=== PATIENT | male | born 1960 | race Caucasian/White ===

== ENCOUNTER 2022-05-10 09:40 | Inpatient (IN) | payer SELFPAY ==
--- OUTSIDE RECORDS SUMMARY | 2022-05-10 09:44 | XMS REPORT | Continuity of Care Document ---
:1960 Author Organization [facility] t Address [address] [place] [address] Care Team Providers Name Role Phone Ronald BRAR, Virginie Davalos Primary Care Physician Ronald BRAR, Virginie Davalos Attending Clinician [phone] GALO COLEMAN Attending Clinician Unavailable MD VIRGINIE CARDENAS Attending Clinician Unavailabl e MD VIRGINIE CARDENAS Admitting Clinician Unavailabl e Payers Payer Name Policy Type Policy Number Effective Date Expiration Date S ource Problems Condition Condition Condition Status Onset Resolution Last Treating Co mments Source Name Details Category Date Date Treatment Clinician Date No known No known Disease Metho di active active st problems problems Hospit a l Allergies, Adverse Reactions, Alerts Allergy Allergy Status Severity Reaction(s) Onset Inactive Treating Comm ents Source Name Type Date Date Clinician Micky Ocampo Active Methodi ty to [facility] adverse Hospita reaction l s to drug Family History Family Member Diagnosis Comments Start Date Stop Date Source Natural father Hypertension [facility] Natural father Heart attack [facility] Natural mother Lung cancer [facility] Natural brother Hypertension [facility] Social History Social Habit Start Date Stop Date Quantity Comments Source History of Chews [facility] Alcohol intake 2021-02-07 2021-02-07 Current drinker [facility] 00:00:00 00:00:00 of alcohol Hospital (finding) Tobacco use and 2018-05-05 2018-05-05 User of smokeless [facility] exposure 00:00:00 00:00:00 tobacco Hospital Sex Assigned At [birth year] M [facility] 00:00:00 [facility]:00 Hospital Smoking Status Start Date Stop Date Source Never smoked tobacco [facility] Medications Ordered Filled Start Stop Current Ordering Indication Dosage Frequency Signature Comments Components Source Medication Medication Date Date Medication? Clinician (SIG) Name Name mayank- Yes [id number] TAKE 1 [facility] drochloroth 8-[address] iazide 00:00: [facility] (HYZAAR) 00 EVERY DAY l 100-25 mg per tablet metoprolol Yes [id number] TAKE 1 M [facility]i succinate - TABLET BY st XL 00:00: [facility] (TOPROL-XL) 00 EVERY DAY l 25 mg 24 hr tablet losartan-hy 2021- No [id number] TAKE 1 [facility] drochloroth 03-[address] iazide 00:00: 00:00 [facility] (HYZAAR) 00 :00 EVERY DAY l 100-25 mg per tablet metoprolol 2021- No [id number] TAKE 1 [facility] succinate 03-[address] XL 00:00: 00:00 [facility]OUTH [facility] (TOPROL-XL) 00 :00 EVERY DAY l 25 mg 24 hr tablet losartan-hy 2021- No [id number] TAKE 1 [facility] drochloroth 01-[address] iazide 00:00: 00:00 [facility]OUTH [facility] (HYZAAR) 00 :00 EVERY DAY l 100-25 mg per tablet metoprolol 2021- No [id number] TAKE 1 [facility] succinate 01-[address] XL 00:00: 00:00 [facility]OUTH [facility] (TOPROL-XL) 00 :00 EVERY DAY l 25 mg 24 hr tablet atorvastati Yes TAKE 1 Meth eliza n (LIPITOR) 1-[address] 80 MG 00:00: MOUTH [facility]osp[facility] tablet 00 EVERY DAY l AT NIGHT atorvastati 2020-2021- No 80mg QD Take 1 Met hodi n (LIPITOR) 5-10 01-13 tablet (80 s t 80 MG 00:00: 00:00 mg total) Hospit a tablet 00 :00 by mouth l nightly. metoprolol 2021- No [id number] 25mg QD Take 1 [facility] succinate 01-05 tablet (25 st XL 00:00: 00:00 mg total) Hospita (TOPROL-XL) 00 :00 by mouth l 25 mg 24 hr daily. tablet losartan-hy 2021- No [id number] 1{tbl} QD Take 1 [facility] drochloroth 01-[address] iazide 00:00: 00:00 mouth Hospita (HYZAAR) 00 :00 daily. l 100-25 mg per tablet Immunizations Ordered Immunization Filled Immunization Date Status Commen ts Source Name Name Zoster Vaccine 2021-03-09 Completed [facility] Recombinant 00:00:00 Hospital Zoster Vaccine 2021-01-05 Completed [facility] Recombinant 00:00:00 Hospital ROXANA COVID-19 2020-12-11 Completed [facility] t AD26 VACCINATION 00:00:00 [facility] Tdap 2018-09-18 Completed [facility] 00:00:00 Hospital Procedures This patient has no known procedures. Plan of Care Planned Activity Planned Date Details Comments Source Future Scheduled 2022-05-10 HEPATITIS B VACCINES Met [facility] Test 09:43:20 (1 of 3 - 3-dose series) [code = HEPATITIS B VACCINES (1 of 3 - 3-dose series)] Future Scheduled 2022-05-10 COLONOSCOPY SCREENING [facility] Test 09:43:20 [code = COLONOSCOPY SCREENING] Future Scheduled 2022-05-10 COVID-19 VACCINE (2 - [facility] Test 09:43:20 Booster for Roxana series) [code = COVID-19 VACCINE (2 - Booster for Roxana series)] Future Scheduled 2022-05-10 INFLUENZA VACCINE [facility] Test 09:43:20 [code = INFLUENZA VACCINE] Encounters Start End Encounter Admission Attending Care Care Encounter Source Date/Time Date/Time Type Type Clinicians Facility Department ID 2022-04-30 2022-04-30 Refill Ronald, 1.2.840.1 [id number] [facility] 00:00:00 00:00:[id number] [place] 3.430.2.7 Hospi ta .3.739506 l .8 2022-04-22 2022-04-22 Refill Ronald, 1.2.840.1 [id number] [facility] 00:00:00 00:00:[id number] [place] 3.430.2.7 Hospi ta .3.369313 l .8 2022-03-28 2022-03-28 Refill [place], 1.2.840.1 [id number] [facility] 00:00:00 00:00:[id number] [place] 3.430.2.7 Hospi ta .3.441695 l .8 2022-01-02 2022-01-02 Refill [place], 1.2.840.1 [id number] [facility] 00:00:00 00:00:[id number] [place] 3.430.2.7 Hospi ta .3.131667 l .8 2021-09-12 2021-09-12 Refill Ronald, 1.2.840.1 [id number] [facility] 00:00:00 00:00:[id number] [place] 3.430.2.7 Hospi ta .3.639683 l .8 2021-03-09 2021-03-09 Outpatient [facility] [id number] [place] 00:00:00 00:00:[address] 2021-02-06 2021-02-06 Outpatient JARED [facility] [id number] [place] 00:00:00 00:00:00 GALO [address] 2021-02-06 2021-02-06 Outpatient RONALD [facility] [id number] [place] 00:00:00 00:00:00 VIRGINIE [address] 2021-01-05 2021-01-05 Outpatient RONALD [facility] [id number] [place] 00:00:00 00:00:00 VIRGINIE [address] 2021-01-05 2021-01-05 Outpatient [facility] [id number] [place] 00:00:00 00:00:[address] 2020-08-22 2020-08-22 Outpatient RONALD [facility] [id number] [place] 00:00:00 00:00:00 VIRGINIE 782 Metho di 2020-02-04 2020-02-04 Outpatient RONALD [facility] [id number] [place] 00:00:00 00:00:00 VIRGINIE 925 Metho di 2020-02-03 2020-02-03 Outpatient RONALD [facility] [id number] [place] 00:00:00 00:00:00 VIRGINIE 987 Metho di 2020-01-25 2020-01-25 Outpatient RONALD [facility] [id number] [place] 00:00:00 00:00:00 VIRGINIE 134 Metho di 2019-12-31 2019-12-31 Outpatient RONALD [facility] [id number] [place] 00:00:00 00:00:00 VIRGINIE 527 Metho di 2019-10-29 2019-10-29 Outpatient RONALD [facility] [id number] [place] 00:00:00 00:00:00 VIRGINIE 134 Metho di 2019-10-29 2019-10-29 Outpatient [facility] [id number] [place] 00:00:00 00:00:[address] Results Test Description Test Time Test Comments Results Result Comments Source SARS coronavirus 2 RNA [Presence] in Respiratory speci men by 2020-02-04 18:34:56 IRWIN with probe detection Test Item Value Reference Range Interpretation Comme nts SARS coronavirus 2 RNA [Presence] in Respiratory Not detected Not-D etected specimen by IRWIN with probe detection (test code = 27317-2)
[2022-05-10] MEDS ORDERED: KETOROLAC 30 MG/ML INJ ONE (10:33)
[2022-05-10] MEDS ORDERED: FAMOTIDINE 20 MG/2 ML VIAL IV ONE (10:34)
[2022-05-10] MEDS ORDERED: NA CHLORIDE 0.9% 1,000 ML ONE ×4 (10:34→21:19)
[2022-05-10] MEDS ORDERED: ONDANSETRON 4 MG/2 ML VIAL ONE (10:34)
[2022-05-10 10:36] LABS: Absolute Lymphocytes (CBC) 0.2 K/uL (0.7-4.9); Hematocrit 37.3 % (39.6-49.0); Lymphocytes % 1.7 % (15.3-44.8); MCV 87.3 fL (80-100); MPV 7.9 fL (7.6-11.3); RBC Red Blood Cell Count 4.27 M/uL (4.33-5.43)
--- NOTE | 2022-05-10 11:32 | RAD REPORT ---
EXAM DESCRIPTION: US - Abdomen Exam Limited - 05/10/2022 11:14 am CLINICAL HISTORY: ABD PAIN COMPARISON: No comparisons FINDINGS: The gallbladder demonstrates sludge and small stones in the gallbladder. Gallbladder wall is mildly thickened. The common bile duct is normal measuring 4 mm. The liver demonstrates no findings of intrahepatic biliary dilatation. IMPRESSION: Sludge and gallstones are seen with mild wall thickening. HIDA scan may be of value to a ssess for possible cholecystitis.
[2022-05-10 11:35] LABS: Albumin 3.2 g/dL (3.4-5.0); Bilirubin Total 1.2 mg/dL (0.2-1.0); Potassium 3.4 mmol/L (3.5-5.1); Protein, Total 7.9 g/dL (6.4-8.2)
--- NOTE | 2022-05-10 12:02 | ER ---
Nurse's Notes [facility] Name: Kennedy Sewell Age: 61 yrs Sex: Male : 1960 Arrival Date: 05/10/2022 Time: 09:43 Bed 17 Private MD: Diagnosis: Acute cholecystitis Presentation: 05/10 09:55 Chief complaint: Patient states: epigastric \T\ RUQ pain that began on Friday. Pt reports ss that on the first day he had some N/V, but since then has just had a decrease in his appetite. Worse when eating. Coronavirus screen: Client denies travel out of the [place] in the last 14 days. Ebola Screen: Patient denies exposure to infectious person. Patient denies travel to an Ebola-affected area in the 21 days before illness onset. Initial Sepsis Screen: Does the patient meet any 2 criteria? No. Patient's initial sepsis screen is negative. Does the patient have a suspected source of infection? No. Patient's initial sepsis screen is negative. Risk Assessment: Do you want to hurt yourself or someone else? Patient reports no desire to harm self or others. Onset of symptoms was May 06, 2022. 09:55 Method Of Arrival: Ambulatory ss 09:55 Acuity: MARIA EUGENIA 3 ss Historical: - Allergies: 10:02 Codeine; ss - PMHx: 10:02 Hypertensive disorder; ss - PSHx: 10:02 None; ss - Immunization history:: Client reports receiving the 2nd dose of the Covid vaccine. - Social history:: Smoking status: Patient reports use of chewing tobacco. Screenin:30 Abuse screen: Denies threats or abuse. Nutritional screening: No deficits noted. aa5 Tuberculosis screening: No symptoms or risk factors identified. Fall Risk None identified. Assessment: 10:30 General: Appears comfortable, Behavior is calm, cooperative. Pain: Complains of pain in aa5 epigastric area Pain radiates to right upper quadrant Pain currently is 4 out of 10 on a pain scale. Quality of pain is described as sharp, Pain began friday Is intermittent. Neuro: Level of Consciousness is awake, alert, obeys commands, Oriented to person, place, time, situation. Cardiovascular: Heart tones S1 S2 present Rhythm is regular. Respiratory: Airway is patent Respiratory effort is even, unlabored, Respiratory pattern is regular, symmetrical. GI: Abdomen is round Bowel sounds present X 4 quads. Abd is soft X 4 quads Abdomen is tender to palpation in epigastric area and right upper quadrant Reports nausea, vomiting, Patient currently denies diarrhea. : No signs and/or symptoms were reported regarding the genitourinary system. EENT: No signs and/or symptoms were reported regarding the EENT system. Derm: Skin is pink, warm \T\ dry. Musculoskeletal: Range of motion: intact in all extremities. 12:00 Reassessment: Pt c/o chills. Neuro: Level of Consciousness is awake, alert, obeys aa5 commands, Oriented to person, place, time, situation. Respiratory: Airway is patent Respiratory effort is even, unlabored, Respiratory pattern is regular, symmetrical. Derm: Skin is dry, Skin is normal, Skin temperature is hot. 12:00 Reassessment: Pt back from radiology . aa5 13:30 Neuro: Level of Consciousness is awake, alert, obeys commands, Oriented to person, aa5 place, time, situation. Respiratory: Airway is patent Respiratory effort is even, unlabored, Respiratory pattern is regular, symmetrical. Derm: Skin is dry, Skin is normal, Skin temperature is hot. 13:35 Reassessment: Pt to MRI via wheelchair. Antibiotics on hold until pt returns from MRI. .aa5 14:34 Neuro: Level of Consciousness is awake, alert, obeys commands, Oriented to person, aa5 place, time, situation. Respiratory: Airway is patent Respiratory effort is even, unlabored, Respiratory pattern is regular, symmetrical. Derm: Skin is dry, Skin is normal, Skin temperature is hot. 14:34 Reassessment: Pt currently denies chills, temperature not improving, provider notified. aa5 . 14:34 Pain: Pain currently is 1 out of 10 on a pain scale. aa5 14:34 Reassessment: Patient states feeling better. aa5 14:45 Reassessment: Pt given Jello and vanilla pudding per request, pt tolerating well. . aa5 15:00 Reassessment: Lactate drawn before 2nd NS liter bolus was administered. . aa5 15:25 Reassessment: Patient is alert, oriented x 3, equal unlabored respirations, skin aa5 warm/dry/pink. Pt sitting up in bed watching TV, hypotension, pt denies any symptoms. . 16:00 Reassessment: Patient is alert, oriented x 3, equal unlabored respirations, skin aa5 warm/dry/pink. 16:30 Reassessment: Patient is alert, oriented x 3, equal unlabored respirations, skin aa5 warm/dry/pink. Pt sitting up in bed watching TV. . 17:00 Reassessment: Dr. Cast (hospitalist) notified of persistent hypotension, pt denies any aa5 symptoms. TO to administer 1 L NS bolus (see MAR). 17:00 Reassessment: Patient is alert, oriented x 3, equal unlabored respirations, skin aa5 warm/dry/pink. 18:00 Reassessment: Patient is alert, oriented x 3, equal unlabored respirations, skin aa5 warm/dry/pink. Sitting up in bed watching TV. . 18:35 Reassessment: Administered [employer] [facility] medications per Dr. Cast (see [facility]) . aa5 Vital Signs: 09:55 BP 123 / 77; Pulse 103; Resp 16; Temp 97.8(TE); Pulse Ox 97% on R/A; Weight 86.18 kg; ss Height 5 ft. 9 in. (175.26 cm); Pain 3/10; 12:00 BP 124 / 76; Pulse 108; Resp 24 S; Temp 101.8(O); Pulse Ox 96% on R/A; aa5 13:30 BP 106 / 63; Pulse 90; Resp 20 S; Temp 101.5(O); Pulse Ox 95% on R/A; aa5 14:34 BP 90 / 72; Pulse 96; Resp 18 S; Temp 101.2(O); Pulse Ox 98% on R/A; aa5 15:00 BP 83 / 48; Pulse 102; Resp 18 S; Pulse Ox 99% on R/A; aa5 15:25 BP 83 / 56; Pulse 89; Resp 16 S; Temp 99.3(O); Pulse Ox 98% on R/A; aa5 16:00 BP 80 / 53; Pulse 88; Resp 16 S; Pulse Ox 98% on R/A; aa5 16:20 BP 83 / 47; Pulse 84; Resp 14 S; Pulse Ox 97% on R/A; aa5 16:45 BP 84 / 58; Pulse 84; Resp 14 S; Pulse Ox 99% on R/A; aa5 17:00 BP 83 / 49; Pulse 84; Resp 16 S; Pulse Ox 99% on R/A; aa5 17:34 BP 84 / 55; Pulse 86; Resp 16; Temp 99.6(O); Pulse Ox 97% on R/A; aa5 18:00 BP 86 / 57; Pulse 80; Resp 16 S; Pulse Ox 99% on R/A; aa5 18:45 BP 85 / 60; Pulse 85; Resp 14 S; Temp 99.6(O); Pulse Ox 98% on R/A; aa5 09:55 Body Mass Index 28.06 (86.18 kg, 175.26 cm) ss 12:00 provider notified of elevated temperature aa5 14:34 provider notified of lowered BP and unchanged temperature. aa5 ED Course: 09:43 Patient arrived in ED. mr 10:02 Triage completed. ss 10:02 Arm band placed on right wrist. ss 10:08 Hernán William is PHCP. jl9 10:08 Td Segura MD is Attending Physician. jl9 10:28 Inserted saline lock: 20 gauge in right antecubital area, using aseptic technique. kc6 Blood collected. 10:28 CBC with Diff Sent. kc6 10:28 CMP Sent. kc6 10:28 Lipase Sent. kc6 10:30 Patient has correct armband on for positive identification. Placed in gown. Bed in low aa5 position. Call light in reach. Side rails up X 1. Pulse ox on. NIBP on. 10:49 Alannah Sanchez, RHODA is Primary Nurse. aa5 11:16 Abdomen Limited US In Process Unspecified. EDMS 12:01 Macie Cast MD is Hospitalizing Provider. jl9 12:40 First set of blood cultures drawn by me. dh3 12:47 Second set of blood cultures drawn. Inserted saline lock: 20 gauge in left antecubital 3 area, using aseptic technique. Blood collected. 12:53 Blood Culture Adult (2) Sent. dh3 14:09 Cholangiogram In Process Unspecified. EDMS 14:56 COVID swab sent to lab. tm3 18:51 No provider procedures requiring assistance completed. Patient admitted, IV remains in aa5 place. Administered Medications: 11:45 Drug: Pepcid (famotidine) 20 mg Route: IVP; Site: right antecubital; aa5 12:00 Follow up: Response: No adverse reaction aa5 11:45 Drug: Zofran (Ondansetron) 4 mg Route: IVP; Site: right antecubital; aa5 12:00 Follow up: Response: No adverse reaction aa5 11:45 Drug: Ketorolac 15 mg Route: IVP; Site: right antecubital; aa5 12:00 Follow up: Response: No adverse reaction aa5 11:45 Drug: NS 0.9% 1000 ml Route: IV; Rate: 1000 ml; Site: right antecubital; aa5 13:30 Follow up: IV Status: Completed infusion; IV Intake: 1000ml aa5 13:30 Drug: fentaNYL (PF) 50 mcg Route: IVP; Site: right antecubital; aa5 13:35 Follow up: Response: No adverse reaction aa5 13:35 Drug: Tylenol 1000 mg Route: PO; aa5 14:34 Follow up: Response: No adverse reaction aa5 14:20 Drug: metroNIDAZOLE 500 mg Volume: 100 ml; Route: IVPB; Infused Over: 30 mins; Site: aa5 right antecubital; 14:30 Follow up: Response: No adverse reaction aa5 14:50 Follow up: IV Status: Completed infusion aa5 15:00 Drug: Cipro (ciprofloxacin) 400 mg Volume: 200 ml; Route: IVPB; Infused Over: 60 mins; aa5 Site: right antecubital; 15:10 Follow up: Response: No adverse reaction aa5 16:00 Follow up: Response: No adverse reaction; IV Status: Completed infusion aa5 15:01 Drug: NS 0.9% 1000 ml Route: IV; Rate: 1000 ml; Site: right antecubital; aa5 16:00 Follow up: IV Status: Completed infusion; IV Intake: 1000ml aa5 15:01 Drug: Ibuprofen 800 mg Route: PO; aa5 15:25 Follow up: Response: Temperature is decreased aa5 17:19 Drug: NS 0.9% 1000 ml Route: IV; Rate: 1000 ml; Site: right antecubital; aa5 18:00 Follow up: IV Status: Completed infusion; IV Intake: 1000ml aa5 Medication: 18:45 VIS not applicable for this client. aa5 Intake: 13:30 IV: 1000ml; Total: 1000ml. aa5 16:00 IV: 1000ml; Total: 2000ml. aa5 18:00 IV: 1000ml; Total: 3000ml. aa5 Outcome: 12:01 Decision to Hospitalize by Provider. jl9 19:00 Admitted to ER Hold. Please see [facility] for further documentation. aa5 19:00 Condition: stable 19:00 Instructed on the need for admit, Demonstrated understanding of instructions, Report given to RHODA Nelson 22:23 Patient left the ED. bb Signatures: Dispatcher [employer] EDMS Serjio Allen tm3 Rocky, Lisa mr Esther, Palma, RN RN bb Alannah Sanchez RN RHODA [email or web address] Sylvia Guerrero RN RN ss Herrera, Deanna Hernán Godfrey jl9 Nadege Anton6 Corrections: (The following items were deleted from the chart) 13:48 13:35 Reassessment: Pt to MRI via wheelchair. . aa5 aa5 15:08 13:30 Temp 101.5F Oral; aa5 aa5 15:08 14:34 Temp 101.2F Oral; aa5 aa5 17:41 17:34 Pulse 86bpm; Resp 16bpm; Pulse Ox 97% RA; Temp 99.6F Oral; aa5 aa5 19:24 17:00 Reassessment: Dr. Cast (hospitalist) notified of persistent hypotension, pt aa5 denies any symptoms. TO to administer 1 L NS bolus. aa5 19:36 15:25 Reassessment: Patient is alert, oriented x 3, equal unlabored respirations, skin aa5 warm/dry/pink. aa5 19:37 16:00 Reassessment: Patient is alert, oriented x 3, equal unlabored respirations, skin aa5 warm/dry/pink. Pt sitting up in bed watching TV. . aa5
--- NOTE | 2022-05-10 12:02 | EDPHYS ---
Physician Documentation [facility] Name: Kennedy Sewell Age: 61 yrs Sex: Male : 1960 Arrival Date: 05/10/2022 Time: 09:43 Bed 17 Private MD: ED Physician Td Segura HPI: 05/10 10:25 This 61 yrs old Male presents to ER via Ambulatory with complaints of RUQ jl9 Abdominal Pain. Patient reports that pain is isolated to RUQ and worsens when he eats.. 10:25 The patient presents with abdominal pain in the right upper quadrant. Onset: The jl9 symptoms/episode began/occurred 1 week(s) ago. The symptoms do not radiate. Associated signs and symptoms: Pertinent positives: Nausea. The symptoms are described as achy. Modifying factors: The symptoms are alleviated by nothing, the symptoms are aggravated by food. Severity of pain: in the emergency department the pain is a 3 / 10. The patient has not experienced similar symptoms in the past. Historical: - Allergies: 10:02 Codeine; ss - PMHx: 10:02 Hypertensive disorder; ss - PSHx: 10:02 None; ss - Immunization history:: Client reports receiving the 2nd dose of the Covid vaccine. - Social history:: Smoking status: Patient reports use of chewing tobacco. ROS: 10:26 Constitutional: Negative for fever, chills, and weight loss, Eyes: Negative for injury, jl9 pain, redness, and discharge, ENT: Negative for injury, pain, and discharge, Neck: Negative for injury, pain, and swelling, Cardiovascular: Negative for chest pain, palpitations, and edema, Respiratory: Negative for shortness of breath, cough, wheezing, and pleuritic chest pain. 10:26 Back: Negative for injury and pain, : Negative for injury, bleeding, discharge, and swelling, MS/Extremity: Negative for injury and deformity, Skin: Negative for injury, rash, and discoloration, Neuro: Negative for headache, weakness, numbness, tingling, and seizure, Psych: Negative for depression, anxiety, suicide ideation, homicidal ideation, and hallucinations, Allergy/Immunology: Negative for hives, rash, and allergies, Endocrine: Negative for neck swelling, polydipsia, polyuria, polyphagia, and marked weight changes, Hematologic/Lymphatic: Negative for swollen nodes, abnormal bleeding, and unusual bruising. 10:26 Abdomen/GI: Positive for abdominal pain, nausea. Exam: 10:26 Constitutional: This is a well developed, well nourished patient who is awake, alert, jl9 and in no acute distress. Head/Face: Normocephalic, atraumatic. Eyes: Pupils equal round and reactive to light, extra-ocular motions intact. Lids and lashes normal. Conjunctiva and sclera are non-icteric and not injected. Cornea within normal limits. Periorbital areas with no swelling, redness, or edema. ENT: Mucous membranes moist. Neck: Trachea midline, no thyromegaly or masses palpated, and no cervical lymphadenopathy. Supple, full range of motion without nuchal rigidity, or vertebral point tenderness. No Meningismus. Chest/axilla: Normal chest wall appearance and motion. Nontender with no deformity. No lesions are appreciated. Cardiovascular: Regular rate and rhythm with a normal S1 and S2. No gallops, murmurs, or rubs. Normal PMI, no JVD. No pulse deficits. Respiratory: Lungs have equal breath sounds bilaterally, clear to auscultation and percussion. No rales, rhonchi or wheezes noted. No increased work of breathing, no retractions or nasal flaring. 10:26 Back: No spinal tenderness. No costovertebral tenderness. Full range of motion. Skin: Warm, dry with normal turgor. Normal color with no rashes, no lesions, and no evidence of cellulitis. MS/ Extremity: Pulses equal, no cyanosis. Neurovascular intact. Full, normal range of motion. Neuro: Awake and alert, GCS 15, oriented to person, place, time, and situation. Cranial nerves II-XII grossly intact. Motor strength 5/5 in all extremities. Sensory grossly intact. Cerebellar exam normal. Normal gait. Psych: Awake, alert, with orientation to person, place and time. Behavior, mood, and affect are within normal limits. 10:26 Abdomen/GI: Inspection: abdomen appears normal, Bowel sounds: normal, Palpation: mild abdominal tenderness, in the epigastric area and abdomen diffusely. Vital Signs: 09:55 BP 123 / 77; Pulse 103; Resp 16; Temp 97.8(TE); Pulse Ox 97% on R/A; Weight 86.18 kg; ss Height 5 ft. 9 in. (175.26 cm); Pain 3/10; 12:00 BP 124 / 76; Pulse 108; Resp 24 S; Temp 101.8(O); Pulse Ox 96% on R/A; aa5 13:30 BP 106 / 63; Pulse 90; Resp 20 S; Temp 101.5(O); Pulse Ox 95% on R/A; aa5 14:34 BP 90 / 72; Pulse 96; Resp 18 S; Temp 101.2(O); Pulse Ox 98% on R/A; aa5 15:00 BP 83 / 48; Pulse 102; Resp 18 S; Pulse Ox 99% on R/A; aa5 15:25 BP 83 / 56; Pulse 89; Resp 16 S; Temp 99.3(O); Pulse Ox 98% on R/A; aa5 16:00 BP 80 / 53; Pulse 88; Resp 16 S; Pulse Ox 98% on R/A; aa5 16:20 BP 83 / 47; Pulse 84; Resp 14 S; Pulse Ox 97% on R/A; aa5 16:45 BP 84 / 58; Pulse 84; Resp 14 S; Pulse Ox 99% on R/A; aa5 17:00 BP 83 / 49; Pulse 84; Resp 16 S; Pulse Ox 99% on R/A; aa5 17:34 BP 84 / 55; Pulse 86; Resp 16; Temp 99.6(O); Pulse Ox 97% on R/A; aa5 18:00 BP 86 / 57; Pulse 80; Resp 16 S; Pulse Ox 99% on R/A; aa5 18:45 BP 85 / 60; Pulse 85; Resp 14 S; Temp 99.6(O); Pulse Ox 98% on R/A; aa5 09:55 Body Mass Index 28.06 (86.18 kg, 175.26 cm) ss 12:00 provider notified of elevated temperature aa5 14:34 provider notified of lowered BP and unchanged temperature. aa5 MDM: 10:08 Patient medically screened. jl9 10:27 Data reviewed: vital signs, nurses notes. jl9 12:01 Counseling: I had a detailed discussion with the patient and/or guardian regarding: the jl9 historical points, exam findings, and any diagnostic results supporting the discharge/admit diagnosis, lab results, radiology results, the need for further work-up and treatment in the hospital. Physician consultation: Spoke to Dr Cast in ED. Will see patient and consult surgery if needed. . 05/10 10:13 Order name: CBC with Diff; Complete Time: 11:33 9 05/10 10:13 Order name: CMP; Complete Time: 11:36 [facility] 05/10 10:13 Order name: Lipase; Complete Time: 11:36 [facility] 05/10 12:00 Order name: Blood Culture Adult (2) [facility] 05/10 14:39 Order name: CBC with Automated Diff EDMS 05/10 14:39 Order name: CBC with Automated Diff EDMS 05/10 14:39 Order name: Comprehensive Metabolic Panel EDMS 05/10 14:39 Order name: Comprehensive Metabolic Panel EDMS 05/10 14:39 Order name: Lipase EDMS 05/10 14:39 Order name: Lipase EDMS 05/10 14:39 Order name: Magnesium EDMS 05/10 14:39 Order name: Magnesium EDMS 05/10 14:39 Order name: Phosphorus EDMS 05/10 14:39 Order name: Phosphorus EDMS 05/10 10:13 Order name: Abdomen Limited US; Complete Time: 11:33 [facility] 05/10 11:59 Order name: Cholangiogram; Complete Time: 14:40 EDMS 05/10 14:39 Order name: Protime (+INR) EDMS 05/10 14:39 Order name: Protime (+INR) EDMS 05/10 14:39 Order name: PTT, Activated Partial Thromb EDMS 05/10 14:39 Order name: PTT, Activated Partial Thromb EDIN 05/10 14:40 Order name: Urine Dipstick-Ancillary; Complete Time: 14:40 [facility] 05/10 14:40 Order name: Lactate; Complete Time: 16:41 [facility] 05/10 14:47 Order name: SARS-COV-2 Antigen Rapid; Complete Time: 16:41 05/10 10:13 Order name: IV Saline Lock; Complete Time: 10:28 [facility] 05/10 10:13 Order name: Labs collected and sent; Complete Time: 10:28 [facility] 05/10 10:13 Order name: Urine Dipstick-Ancillary (obtain specimen); Complete Time: 15:01 [facility] 05/10 14:39 Order name: CONS Physician Consult EDMS 05/10 14:39 Order name: NPO EDMS Administered Medications: 11:45 Drug: Pepcid (famotidine) 20 mg Route: IVP; Site: right antecubital; aa5 12:00 Follow up: Response: No adverse reaction aa5 11:45 Drug: Zofran (Ondansetron) 4 mg Route: IVP; Site: right antecubital; aa5 12:00 Follow up: Response: No adverse reaction aa5 11:45 Drug: Ketorolac 15 mg Route: IVP; Site: right antecubital; aa5 12:00 Follow up: Response: No adverse reaction aa5 11:45 Drug: NS 0.9% 1000 ml Route: IV; Rate: 1000 ml; Site: right antecubital; aa5 13:30 Follow up: IV Status: Completed infusion; IV Intake: 1000ml aa5 13:30 Drug: fentaNYL (PF) 50 mcg Route: IVP; Site: right antecubital; aa5 13:35 Follow up: Response: No adverse reaction aa5 13:35 Drug: Tylenol 1000 mg Route: PO; aa5 14:34 Follow up: Response: No adverse reaction aa5 14:20 Drug: metroNIDAZOLE 500 mg Volume: 100 ml; Route: IVPB; Infused Over: 30 mins; Site: aa5 right antecubital; 14:30 Follow up: Response: No adverse reaction aa5 14:50 Follow up: IV Status: Completed infusion aa5 15:00 Drug: Cipro (ciprofloxacin) 400 mg Volume: 200 ml; Route: IVPB; Infused Over: 60 mins; aa5 Site: right antecubital; 15:10 Follow up: Response: No adverse reaction aa5 16:00 Follow up: Response: No adverse reaction; IV Status: Completed infusion aa5 15:01 Drug: NS 0.9% 1000 ml Route: IV; Rate: 1000 ml; Site: right antecubital; aa5 16:00 Follow up: IV Status: Completed infusion; IV Intake: 1000ml aa5 15:01 Drug: Ibuprofen 800 mg Route: PO; aa5 15:25 Follow up: Response: Temperature is decreased aa5 17:19 Drug: NS 0.9% 1000 ml Route: IV; Rate: 1000 ml; Site: right antecubital; aa5 18:00 Follow up: IV Status: Completed infusion; IV Intake: 1000ml aa5 Disposition Summary: 05/10/22 12:01 Hospitalization Ordered Hospitalization Status: Inpatient Admission jl9 Provider: Macie Cast Condition: Stable jl9 Problem: new jl9 Symptoms: are unchanged jl9 Bed/Room Type: Standard jl9 Location: Intensive Care Unit(05/10/22 19:45) Room Assignment: 1-(05/10/22 20:08) Diagnosis - Acute cholecystitis jl9 Forms: - Medication Reconciliation Form jl9 - SBAR form jl9 Signatures: Dispatcher [employer] EDMS Kellen Bolton bd Virginia Malik RN RN Nathaly Neal RN RN Alannah Whitmore RN RN [email or web address] Sylvia Guerrero RN RN Hernán William jl9 Corrections: (The following items were deleted from the chart) 15:50 12:01 jl9 bd 18:02 12:01 Telemetry/MedSurg (Inpatient) jl9 18:02 15:50 [id number] 19:45 18:[address] [facility] ER HOLD [facility] 19:45 18:02 [facility] 20:08 19:45 4- mw
[2022-05-10] MEDS ORDERED: FENTANYL CITR 100 MCG/2 ML ONE (13:22)
[2022-05-10] MEDS ORDERED: CIPROFLOXACIN 400mg IV 400 MG/200 ML BAG IV ONE (13:23)
[2022-05-10] MEDS ORDERED: METRONIDAZOLE 500mg IVPB 500 MG/100 ML BAG IV ONE (13:23)
[2022-05-10] MEDS ORDERED: ACETAMINOPHEN 500 MG TAB ONE (13:47)
--- NOTE | 2022-05-10 14:26 | RAD REPORT ---
EXAM DESCRIPTION: MRICholangiogram05/10/2022 2:14 pm CLINICAL HISTORY: Abdominal pain COMPARISON: May 10, 2022 ultrasound TECHNIQUE: Magnetic resonance cholangiogram was performed.3D MIP reconstruction performed FINDINGS: Small filling defect within the gallbladder consistent with gallstone. Small amount of slu dge also visualized. Gallbladder wall is thickened The biliary tree is normal caliber without a filling defect. Pancreatic duct is normal caliber IMPRESSION: Cholelithiasis and sludge Thickened gallbladder wall may indicate cholecystitis
[2022-05-10] MEDS ORDERED: ONDANSETRON 4 MG/2 ML VIAL IV PRN (14:33)
[2022-05-10] MEDS ORDERED: ACETAMINOPHEN 500 MG TAB PO PRN (14:33)
[2022-05-10 14:40] LABS: Urine Blood Trace-intact (Negative); Urine Glucose Negative (Negative); Urine Protein 2+ (Negative); Urine Specific Gravity 1.025 (1.005-1.030); Urine pH 5.5 (5.0-7.0)
[2022-05-10] MEDS ORDERED: IBUPROFEN 400 MG TAB ONE (14:53)
[2022-05-10] MEDS ORDERED: HYDROMORPHONE HCL 0.5 MG/0.5 ML INJ IV PRN (14:56)
[2022-05-10] MEDS: ENOXAPARIN 40 MG/0.4 ML SQ SCH (15:00)
[2022-05-10 15:22] LABS: SARS-CoV-2 Antigen Rapid Res Negative (Negative)
[2022-05-10] MEDS ORDERED: ERTAPENEM SODIUM 1 GM VIAL IVPB ONE (17:48)
[2022-05-10] MEDS ORDERED: ERTAPENEM NA 1 GM in NA CHLORIDE 0.9% 100 ML IVPB ONE (18:00)
[2022-05-10] MEDS: METRONIDAZOLE 500mg IVPB 500 MG/100 ML BAG IV SCH ×2 (18:00→23:40)
[2022-05-10] MEDS: ALBUMIN HUMAN 25% 100 ML IV ONE ×2 (18:00→18:35)
[2022-05-10] MEDS ORDERED: Levofloxacin500mg IV 500 MG/100 ML BAG IV ONE (18:31)
[2022-05-10] MEDS ORDERED: D5 0.9 NS 0 ML IV ONE (18:31)
[2022-05-10] MEDS ORDERED: HYDROCORTISONE SUC 100 MG INJ ONE (18:32)
[2022-05-10] MEDS: D5 0.9 NS 1,000 ML IV SCH (18:35)
[2022-05-10] MEDS ORDERED: HYDROCORTISONE SUC 100 MG INJ IV ONE (18:44)
--- NOTE | 2022-05-10 19:05 | P.HP ---
Certification for Inpatient Patient admitted to: Inpatient With expected LOS: >2 Midnights Patient will require the following post-hospital care: None Practitioner: I am a practitioner with admitting privileges, knowledge of patient current condition, hospital course, and medical plan of care. Services: Services provided to patient in accordance with Admission requirements found in Title 42 Section 412.3 of the Code of Federal Regulations Patient History Date of Service: 05/10/22 Reason for admission: Acute cholecystitis History of Present Illness: patient is a 61-year-old gentleman came to the hospital with abdominal pain. He had a similar episode a couple months ago but it subsided after 24 hours. on Friday he started having abdominal pain once again. He had nausea vomiting that day. Since that time it has not let up. He has been trying to manage it at home but has been unsuccessful. He following decided to come into the emergency room for further evaluation. In the emergency room his workup revealed acute cholecystitis with cholelithiasis. There is no evidence of choledocholithiasis. Spoke to General surgery and patient will be NPO for surgery in the morning. He remains hypotensive and will try to monitor him in the ICU. Allergies codeine Allergy (Verified 05/10/22 17:52) Itching/Hives/Rash Home Medications: Losartan/Hydrochlorothiazide [Losartan-Hctz 100-25 mg Tab] 1 tab PO DAILY 05/10/22 Metoprolol Tartrate 25 mg PO DAILY 05/10/22 - Past Medical/Surgical History Past Medical History: Patient denies medical history Past Surgical History: Patient denies surgical history - Family History Father Family History: Reviewed- Non-Contributory Mother History Unknown: Yes Medical History: Cancer - Social History Smoking Status: Never smoker Alcohol use: No CD- Drugs: No Review of Systems 10-point ROS is otherwise unremarkable Physical Examination - Physical Exam General: Alert, In no apparent distress HEENT: Atraumatic, PERRLA, Mucous membr. moist/pink, EOMI, Sclerae nonicteric Neck: Supple, 2+ carotid pulse no bruit, No LAD, Without JVD or thyroid abnormality Respiratory: Clear to auscultation bilaterally, Normal air movement Cardiovascular: Regular rate/rhythm, Normal S1 S2 Gastrointestinal: Normal bowel sounds, No tenderness Musculoskeletal: No tenderness Integumentary: No rashes Neurological: Normal gait, Normal speech, Normal strength at 5/5 x4 extr, Normal tone, Normal affect Lymphatics: No axilla or inguinal lymphadenopathy - Studies Laboratory Data (last 24 hrs) 05/10/22 10:25: Sodium 130 L, Potassium 3.4 L, BUN 19 H, Creatinine 1.64 H, Glucose 138 H, Total Bilirubin 1.2 H, AST 57 H, ALT 35, Alkaline Phosphatase 120 H, Lipase 29 L 05/10/22 10:25: WBC 13.60 H, Hgb 13.2 L, Hct 37.3 L, Plt Count 185 Assessment & Plan - Problems (Diagnosis) (1) Acute cholecystitis Current Visit: Yes Status: Acute (2) Cholelithiasis Current Visit: Yes Status: Acute (3) Septic shock Current Visit: Yes Status: Acute - Plan -aggressive IV hydration; considering Levophed. Continue monitoring hemodynamics. Additional fluid boluses given -IV antibiotics -pain controlled -surgery consultation -Once we get rid of the source of infection then anticipate recovery quickly. -Continue monitoring renal function and for ATN -Sepsis protocol completed Discharge Plan: Home Plan to discharge in: Greater than 2 days - Advance Directives Does patient have a Living Will: No Does patient have a Durable POA for Healthcare: No - Code Status/Comfort Care Code Status Assessed: Yes Code Status: Full Code Critical Care: No Time Spent Managing PTS Care (In Minutes): 45
[2022-05-10] MEDS: Levofloxacin500mg IV 500 MG/100 ML BAG IV SCH (19:10)
[2022-05-10] MEDS ORDERED: POTASSIUM 25 MEQ EFFERV TAB PO ONE (20:32)
[2022-05-10] MEDS ORDERED: ALBUMIN HUMAN 25% 100 ML IV ONE ×2 (21:04→21:19)
[2022-05-10] MEDS ORDERED: NA CHLORIDE 0.9% 1,000 ML IV ONE (21:05)
[2022-05-10] MEDS ORDERED: POTASSIUM 25 MEQ EFFERV TAB ONE (21:20)
[2022-05-10] MEDS ORDERED: NA CHLORIDE 0.9% 500 ML IV ONE (22:30)
[2022-05-11] MEDS: D5 0.9 NS 1,000 ML IV SCH ×4 (02:49→23:00)
[2022-05-11 05:19] LABS: Absolute Lymphocytes (CBC) 0.4 K/uL (0.7-4.9); Hematocrit 28.1 % (39.6-49.0); Lymphocytes % 3.3 % (15.3-44.8); MCV 87.2 fL (80-100); MPV 8.5 fL (7.6-11.3); RBC Red Blood Cell Count 3.22 M/uL (4.33-5.43)
[2022-05-11 05:27] LABS: Protime INR 1.36
[2022-05-11 05:46] LABS: Albumin 2.6 g/dL (3.4-5.0); Bilirubin Total 0.9 mg/dL (0.2-1.0); Magnesium 1.6 mg/dL (1.8-2.4); Phosphorus 1.5 mg/dL (2.5-4.9); Potassium 3.3 mmol/L (3.5-5.1); Protein, Total 6.3 g/dL (6.4-8.2)
[2022-05-11] MEDS: METRONIDAZOLE 500mg IVPB 500 MG/100 ML BAG IV SCH ×3 (05:47→18:22)
[2022-05-11] MEDS ORDERED: MAGNESIUM SULFATE 1 gm IVPB 1 GM/100 ML BAG IV ONE (07:00)
[2022-05-11] MEDS: ENOXAPARIN 40 MG/0.4 ML SQ SCH (07:30)
[2022-05-11] MEDS ORDERED: Ringers Lactate 1,000 ML IV ONE (08:31)
[2022-05-11] MEDS ORDERED: CEFOXITIN SODIUM 1 GM/VIAL ONE (08:43)
--- NOTE | 2022-05-11 09:20 | P.CNS ---
Date of Consult: 05/11/22 Reason for consult: Abdominal pain History of present illness: Patient is a 61-year-old gentleman whose had postprandial epigastric abdominal pain associated with nausea, vomiting, bloating and belching. His symptoms started last Friday. He had a similar episode about a month ago which lasted about 24 hours. He denies any diarrhea, constipation, blood in stool, dysuria, hematuria, chest pain, fever or chills. Patient has been hypotensive last night. Patient was given albumin and responded appropriately. On his blood cultures, gram stains are positive for gram-negative rods. Patient is on IV antibiotics. Review of systems: Otherwise unremarkable Past medical history: Negative Past surgical history: Negative Allergies: Codeine Social history: Patient denies smoking or drinking alcohol Family history: Noncontributory Vital signs: Currently stable, afebrile Physical exam: Awake alert oriented x3 Head and neck exam: Cranial nerves II through XII grossly within normal limits, no neck masses, no JVD, throat clear, neck supple and no evidence of icterus. Chest: Clear Heart: S1-S2 Abdomen: Soft, nondistended, positive bowel sound, right upper quadrant tenderness with rebound. No evidence of peritonitis. Extremity: Neurovascular intact, nontender Neuro: Nonfocal Diagnostic data: Ultrasound shows sludge and gallstones with mild thickening of the gallbladder wall. Common bile duct is 4 mm. MRCP is negative for any stones or sludge in the common bile duct. White count was 13.6 yesterday today is 11.1 hemoglobin was 13.2 after hydration is down to 10.0 and platelets are 122. Assessment: Acute cholecystitis and cholelithiasis Plan/recommendation: Admit, n.p.o., IV fluid, IV antibiotics and to the OR for laparoscopic cholecystectomy possible open. Patient and understand risks, benefits and alternatives and agreed to procedure. CC:
[2022-05-11] MEDS ORDERED: BUPIVACAINE 0.5% PF 10 ML VIAL ONE (10:37)
[2022-05-11] MEDS ORDERED: propofoL 200 MG/20 ML VIAL IV ONE (10:52)
[2022-05-11] MEDS ORDERED: FENTANYL CITR 100 MCG/2 ML ONE (10:53)
[2022-05-11] MEDS ORDERED: LIDOCAINE 1% MPF 5 ML VIAL ONE (10:53)
[2022-05-11] MEDS ORDERED: ROCURONIUM 50 MG/5 ML VIAL IV ONE ×2 (10:59→11:52)
[2022-05-11] MEDS ORDERED: KETOROLAC 30 MG/ML INJ ONE (11:31)
[2022-05-11] MEDS ORDERED: ONDANSETRON 4 MG/2 ML VIAL ONE (11:31)
[2022-05-11] MEDS ORDERED: dexAMETHasone 10 MG/ML VIAL ONE (11:32)
[2022-05-11] MEDS ORDERED: GLYCOPYRROLATE 0.2 MG/ML SYR ONE (11:43)
[2022-05-11] MEDS: HYDROMORPHONE HCL 1 MG/ML INJ ONE ×2 (12:37→12:47)
--- NOTE | 2022-05-11 12:37 | P.OP ---
Date of Service: 05/11/22 Preop diagnosis: Acute cholecystitis and cholelithiasis Postop diagnosis: Same, with necrotizing gallbladder infection with abscess in the liver bed as well as necrosis of the gallbladder Procedure performed: Laparoscopic cholecystectomy Surgeon: Bony Cardenas MD Manager Community Development: Jennifer SAUL Estimated blood loss: Minimal Specimen: Gallbladder Findings: As above Anesthesia: General Complications: None Drains: MARYBEL #10 Fluids and blood products: Nonapplicable Disposition: Recovery room Operative note: Patient brought to the OR placed in the supine position. General anesthesia begun. Patient prepped and draped in the usual sterile fashion. Marcaine 0.5% infiltrated locally everywhere skin incision made. A 15 blade was used to make a 1 cm supraumbilical midline incision. Subcutaneous tissue divided. Fascia identified and divided. #1 Vicryl stay suture placed into the fascia. Peritoneal cavity entered with sharp and blunt dissection. 12 mm trocar placed into the peritoneal cavity under direct vision. 3 5 mm trochars placed. 1 trocar placed in the epigastric region just to the right of midline and 2 trochars placed in the right subcostal region. Laparoscopy revealed dilated vein and inflammation and suppuration all on the right side of the abdominal wall. The gallbladder itself had multiple areas of necrosis present and the gallbladder was very intrahepatic. Gallbladder was aspirated of infected bile and pus. Then the fundus was grasped and retracted superiorly. Infundibulum was identified and retracted inferolaterally. Careful dissection of the cystic artery and cystic duct were done. Clips were placed and both structures were divided. Cautery was used to remove the gallbladder from the liver bed. There was a lot of pus on the liver bed. This was removed with care and bleeding was controlled cautery. Gallbladder retrieved through the umbilicus via Endo Catch bag. Right upper quadrant was irrigated. Effluent was clear there was no evidence of bleeding or bile leakage appreciated. As there was a lot of inflammation and some minimal oozing noted on the liver bed, Avitene and Surgicel were placed on the liver bed. No further oozing was noted. Victoriano-Ch drain #10 flat was placed in the gallbladder fossa and the right upper quadrant. This was secured with 3-0 nylon. Subsequently all trochars were removed under direct vision. Stay sutures tied to each other to reapproximate the fascial defect. Subcutaneous wounds irrigated and bleeding controlled with cautery. 3-0 chromic was used to reapproximate subcutaneous tissue and norma used to close skin. Sterile dressing applied. Patient awakened and taken to recovery room in good general condition. CC:
[2022-05-11] MEDS ORDERED: HYDROMORPHONE HCL 1 MG/ML INJ IV PRN (12:50)
[2022-05-11] MEDS: HYDROCODONE/APAP 7.5/325 MG TAB PO PRN ×2 (13:31→19:49)
[2022-05-11] MEDS: Levofloxacin500mg IV 500 MG/100 ML BAG IV SCH (15:56)
[2022-05-11] MEDS ORDERED: ZOLPIDEM TARTRATE 5 MG TABLET PO PRN (19:41)
[2022-05-12] MEDS: METRONIDAZOLE 500mg IVPB 500 MG/100 ML BAG IV SCH ×4 (00:53→17:08)
[2022-05-12 04:44] LABS: Absolute Lymphocytes (CBC) 0.6 K/uL (0.7-4.9); Hematocrit 28.5 % (39.6-49.0); Lymphocytes % 5.1 % (15.3-44.8); MCV 86.8 fL (80-100); MPV 8.4 fL (7.6-11.3); RBC Red Blood Cell Count 3.29 M/uL (4.33-5.43)
[2022-05-12 04:58] LABS: Magnesium 1.9 mg/dL (1.8-2.4); Phosphorus 2.4 mg/dL (2.5-4.9); Potassium 3.5 mmol/L (3.5-5.1)
[2022-05-12 05:04] VITALS: BMI 19.1
[2022-05-12] MEDS: D5 0.9 NS 1,000 ML IV SCH ×4 (05:42→23:00)
--- NOTE | 2022-05-12 07:04 | P.PN ---
Date of Service: 05/10/22 Patient remains hypotensive. Patient reassessed in the emergency room. Continue with fluid boluses. Spoke with nursing staff. Please see sepsis focused exam. Sepsis Focused Assessment - Focused Assessment Complete? Sepsis Focused Assessment Completed?: Yes - Sepsis Screen Result Septic Shock: Positive - Evaluation Current stage of sepsis: Septic shock - Vital Signs Reviewed: Yes Temperature: 99 F Heart rate: 110 Blood Pressure: 80/50 Respiratory Rate: 18 O2 Sat by Pulse Oximetry: 97 - Examination Date exam was performed: 05/10/22 Time exam was performed: 18:00 Heart: Tachycardia Lungs: Clear bilaterally Peripheral pulses: 2+ Slightly diminished Peripheral pulse location: Radial Capillary refill: <2 Seconds Skin examination: Normal turgor
--- NOTE | 2022-05-12 07:06 | P.PN ---
Subjective Date of Service: 05/11/22 Patient seen postoperatively. He is clinically doing better. He is awake and alert. Interacting appropriately. Blood pressure is very stable. Spoke with general surgeon regarding surgical findings. Patient will be continued with IV fluids and IV antibiotics over the next 24 to 48 hours. We will see what his clinical response is. He was in septic shock and wait for his blood cultures. Review of Systems 10-point ROS is otherwise unremarkable Physical Examination - Vital Signs Temperature: 99 F Blood Pressure: 80/50 Pulse: 110 Respirations: 18 Pulse Ox (%): 97 - Physical Exam General: Alert, In no apparent distress, Oriented x3 HEENT: Atraumatic, PERRLA, EOMI Neck: Supple, JVD not distended Respiratory: Clear to auscultation bilaterally, Normal air movement Cardiovascular: Regular rate/rhythm, Normal S1 S2 Gastrointestinal: Hypoactive, Tenderness (Appropriately tender postoperatively) Musculoskeletal: No clubbing, No swelling, No tenderness Integumentary: No rashes Neurological: Normal speech, Normal tone, Normal affect Lymphatics: No axilla or inguinal lymphadenopathy - Studies Microbiology Data (last 24 hrs): 05/10/22 12:40 Blood - Blood Blood Culture Gram Stain - Final 05/10/22 12:40 Blood - Blood Gram Stain - Final 05/10/22 12:47 Blood - Blood Blood Culture Gram Stain - Final 05/10/22 12:47 Blood - Blood Gram Stain - Final Medications List Reviewed: Yes Assessment & Plan - Problems (Diagnosis) (1) Acute cholecystitis Current Visit: Yes Status: Acute (2) Cholelithiasis Current Visit: Yes Status: Acute (3) Septic shock Current Visit: Yes Status: Acute (4) Gram-negative bacteremia Current Visit: Yes Status: Acute - Plan -aggressive IV hydration; Continue monitoring hemodynamics. Additional fluid boluses given yesterday. Patient received about 5 L of IV fluids before we got his blood pressure stabilized. We did not have to give him any vasopressor support. Currently he is doing really well postoperatively. Anticipate quick recovery as the gallbladder has been removed. Awaiting blood culture results. -IV antibiotics -pain controlled; out of bed and ambulate -surgery consultation appreciated -Continue monitoring renal function and for ATN -Sepsis protocol completed Discharge Plan: Home Plan to discharge in: 48 Hours - Advance Directives Does patient have a Living Will: No Does patient have a Durable POA for Healthcare: No - Code Status/Comfort Care Code Status: Full Code Critical Care: No Time Spent Managing PTS Care (In Minutes): 35
--- NOTE | 2022-05-12 07:07 | P.PN ---
Date of Service: 05/12/22 Subjective Patient looks to be doing really well. Abdominal pain has improved. Review of Systems 10-point ROS is otherwise unremarkable Physical Examination - Vital Signs Reviewed - Physical Exam General: Alert, In no apparent distress, Oriented x3 Respiratory: Clear to auscultation bilaterally, Normal air movement Cardiovascular: Regular rate/rhythm, Normal S1 S2 Gastrointestinal: Hypoactive, Tenderness (Appropriately tender postoperatively;MARYBEL drain in place) Musculoskeletal: No clubbing, No swelling, No tenderness Neurological: No focal deficits Assessment & Plan - Problems (Diagnosis) (1) Acute cholecystitis Current Visit: Yes Status: Acute (2) Cholelithiasis Current Visit: Yes Status: Acute (3) Septic shock Current Visit: Yes Status: Acute (4) Gram-negative bacteremia Current Visit: Yes Status: Acute - Plan Continue plan of care as mentioned below: -aggressive IV hydration; Continue monitoring hemodynamics. Additional fluid boluses given yesterday. Patient received about 5 L of IV fluids before we got his blood pressure stabilized. We did not have to give him any vasopressor support. Currently he is doing really well postoperatively. Anticipate quick recovery as the gallbladder has been removed. Awaiting blood culture results. -IV antibiotics -pain controlled; out of bed and ambulate -surgery consultation appreciated -Continue monitoring renal function and for ATN -Sepsis protocol completed Discharge Plan: Home Plan to discharge in: 48 Hours - Advance Directives Does patient have a Living Will: No Does patient have a Durable POA for Healthcare: No - Code Status/Comfort Care Code Status: Full Code Critical Care: No Time Spent Managing PTS Care (In Minutes): 35
[2022-05-12] MEDS: ENOXAPARIN 40 MG/0.4 ML SQ SCH (08:24)
[2022-05-12] MEDS: POTASS/SODIUM PHOSPHATE 1 PKT POWD.PACK PO SCH ×3 (08:26→10:23)
[2022-05-12] MEDS ORDERED: POTASSIUM 25 MEQ EFFERV TAB PO ONE (09:00)
--- NOTE | 2022-05-12 10:19 | P.PN ---
Date of Service: 05/12/22 Subjective: Patient is awake and alert. Patient is feeling much better. Patient is tolerating liquids. Pain is well controlled. Objective: Vital signs are significant for blood pressure of 80/50 and a heart rate of 110. Patient is currently afebrile. Patient is receiving IV fluids and responding well. White count is 11.6. MARYBEL output is serosanguineous. Abdomen: Soft, nondistended, positive bowel sound with minimal incisional tenderness. Dressing is clean dry and intact. Assessment: Status post lap stoney for necrotizing infection of the gallbladder. Plan: Continue IV antibiotics, advance diet as tolerated, await for sensitivity on the blood cultures and adjust antibiotics accordingly. Likely discharge in 48 to 72 hours. CC:
[2022-05-12] MEDS: Levofloxacin500mg IV 500 MG/100 ML BAG IV SCH (14:17)
[2022-05-12] MEDS: chlordiazePOXIDE HCl 5 MG CAP PO SCH (20:39)
[2022-05-13] MEDS: METRONIDAZOLE 500mg IVPB 500 MG/100 ML BAG IV SCH ×3 (00:56→16:01)
[2022-05-13] MEDS: D5 0.9 NS 1,000 ML IV SCH ×3 (00:57→11:16)
[2022-05-13 03:44] LABS: Absolute Lymphocytes (CBC) 1.7 K/uL (0.7-4.9); Hematocrit 26.6 % (39.6-49.0); Lymphocytes % 17.1 % (15.3-44.8); MCV 86.7 fL (80-100); MPV 7.9 fL (7.6-11.3); RBC Red Blood Cell Count 3.07 M/uL (4.33-5.43)
[2022-05-13 03:57] LABS: Albumin 2.3 g/dL (3.4-5.0); Bilirubin Total 0.4 mg/dL (0.2-1.0); Magnesium 1.8 mg/dL (1.8-2.4); Phosphorus 1.6 mg/dL (2.5-4.9); Potassium 3.2 mmol/L (3.5-5.1); Protein, Total 5.5 g/dL (6.4-8.2)
[2022-05-13] MEDS ORDERED: MAGNESIUM SULFATE 1 gm IVPB 1 GM/100 ML BAG IV ONE (07:00)
[2022-05-13] MEDS: POTASS/SODIUM PHOSPHATE 1 PKT POWD.PACK PO SCH ×3 (08:41→10:45)
[2022-05-13] MEDS: ENOXAPARIN 40 MG/0.4 ML SQ SCH (08:42)
[2022-05-13] MEDS: chlordiazePOXIDE HCl 5 MG CAP PO SCH ×3 (08:42→20:55)
[2022-05-13] MEDS ORDERED: POTASSIUM 25 MEQ EFFERV TAB PO ONE (09:00)
[2022-05-13] MEDS ORDERED: Levofloxacin 750mg IV 750 MG/150 ML BAG IV SCH (11:00)
--- NOTE | 2022-05-13 18:29 | P.PN ---
Subjective Date of Service: 05/13/22 Chief Complaint: Acute cholecystitis Subjective: Improving No acute events overnight. He reports that his pain is gradually improving. He tolerated the clear liquid diet and has been ambulating around in his room without difficulty. Review of Systems 10-point ROS is otherwise unremarkable Gastrointestinal: Abdominal Pain (minimal, RUQ) Physical Examination - Vital Signs Temperature: 97.5 F Blood Pressure: 138/78 Pulse: 60 Respirations: 14 Pulse Ox (%): 98 - Physical Exam General: Alert, In no apparent distress, Oriented x3 HEENT: Atraumatic, PERRLA, Mucous membr. moist/pink, EOMI, Sclerae nonicteric Neck: Supple, JVD not distended Respiratory: Clear to auscultation bilaterally, Normal air movement Cardiovascular: No edema, Regular rate/rhythm, Normal S1 S2, No gallops, No rubs, No murmurs Gastrointestinal: Normal bowel sounds, Soft and benign, Non-distended, No re bound, No guarding, Other (MARYBEL drain in place with small amount of serosanguinous output), Tenderness (minimal RUQ) Musculoskeletal: No clubbing Integumentary: No rashes Neurological: Normal gait, Normal speech, Cranial nerves 3-12 intact, Normal affect - Studies Microbiology Data (last 24 hrs): 05/10/22 12:47 Blood - Blood Aerobic Blood Culture - Final Escherichia Coli 05/10/22 12:47 Blood - Blood Blood Culture Gram Stain - Final 05/10/22 12:47 Blood - Blood Anaerobic Blood Culture - Final Escherichia Coli 05/10/22 12:47 Blood - Blood Gram Stain - Final 05/10/22 12:40 Blood - Blood Aerobic Blood Culture - Final Escherichia Coli 05/10/22 12:40 Blood - Blood Blood Culture Gram Stain - Final 05/10/22 12:40 Blood - Blood Anaerobic Blood Culture - Final Escherichia Coli 05/10/22 12:40 Blood - Blood Gram Stain - Final Medications List Reviewed: Yes Assessment And Plan - Plan # Septic Shock secondary to Necrotizing Cholecystitis with Liver Bed Abscess with Whelan-Sensitive Escherechia Coli Bacteremia He initally met SIRS criteria based on temperature > 100.9 F, HR > 90 bpm, RR > 20 breaths/min, and WBC > 12,000 and the suspected source was cholecystitis. Severe sepsis was suspected due to concern for tissue hypoperfusion/organ dysfunction based on hypotension (SBP < 90, MAP < 65), creatinine >2.0 mg/dL (without ESRD). Septic shock was suspected due to SBP < 90 mmHg , MAP <65. - Sepsis order set was initiated - Initial Lactate was 1.4 - Blood cultures drawn before antibiotics were given - Broad spectrum antibiotics started: levofloxacin + metronidazole - Infectious Diseases consulted and spoke with Dr. Cho - recommended 14 days total of antibiotics - In regards to fluids: - 30 mL/kg of IV fluids was given based on patient's actual body weight - Sepsis reassessment completed by Dr. Cast at 19:05 on 05/10/2022 - General Surgery consulted and underwent laparascopic cholecystectomy with Dr. Cardenas on 05/11/2022 - Doing well post-operatively - Advance diet as tolerated # Hypertension - Home medications on hold given septic shock Jeferson Bailey M.D. Discharge Plan: Home Plan to discharge in: 24 Hours
--- NOTE | 2022-05-13 20:55 | CON ---
History Of Present Illness: This is a 61-year-old male, I was consulted to recommend treatment for a cute cholecystitis. Patient is doing much better today, has been on a soft diet. Denies any chest p ain, abdominal pain, back pain. No nausea, vomiting, or diarrhea. Had bowel movement and feels much better after that. Past Medical History: Hypertension. Social History: Nonsmoker, nondrinker. Family History: Noncontributory. Medications: Levaquin and Flagyl. See MAR for other medications. Allergies: CODEINE. Review of Systems: A 10-point review was performed. Physical Examination: Vital Signs: Temperature 97, pulse 58, respiration 14, blood pressure 152/83. HEENT: Unremarkable. Neck: Supple. Lungs: Basal crackles. Heart: S1 and S2. Regular. Abdomen: Soft, nontender. Bowel sounds present. Extremities: No edema. Laboratory Data: Shows WBC 10, hemoglobin 9.4, platelets 165. Chemistry shows sodium 136, potassium 3.2, chloride 104, bicarb 24, BUN 26, creatinine point 1.1, glucose is 143, albumin is 2.3. Assessment And Plan: Status post acute cholecystitis and gallbladder removal. The patient is doing well. Leukocytosis has resolved. Anemia of chronic disease in a patient with a history of hypertens ion. Currently on Levaquin and Flagyl. We will recommend to continue for 10 more days of Levaquin a nd Flagyl. Can be switched to oral. Follow up with the surgical team. We will follow the patient a s needed. NF/MODL Voice ID: [id number] Report ID: [id number]
[2022-05-14] MEDS: D5 0.9 NS 1,000 ML IV SCH (00:43)
[2022-05-14] MEDS: METRONIDAZOLE 500mg IVPB 500 MG/100 ML BAG IV SCH (00:43)
[2022-05-14 04:18] LABS: Magnesium 1.7 mg/dL (1.8-2.4); Phosphorus 2.6 mg/dL (2.5-4.9); Potassium 3.5 mmol/L (3.5-5.1)
[2022-05-14] MEDS ORDERED: MAGNESIUM SULFATE 1 gm IVPB 1 GM/100 ML BAG IV ONE (04:51)
[2022-05-14] MEDS ORDERED: POTASSIUM CL SA 10 MEQ TAB PO ONE (04:51)
[2022-05-14 07:31] LABS: Absolute Lymphocytes (CBC) 1.6 K/uL (0.7-4.9); Hematocrit 28.7 % (39.6-49.0); Lymphocytes % 16.3 % (15.3-44.8); MPV 8.6 fL (7.6-11.3)
--- NOTE | 2022-05-14 08:23 | P.DS ---
Admission Date: 05/10/22 Discharge Date: 05/14/22 Disposition: ROUTINE DISCHARGE Discharge Condition: GOOD Reason for Admission: Acute cholecystitis Consultations: 1. General Surgery Procedures: - 05/10/2022: Laparoscopic Cholecystectomy Hospital Course: DIAGNOSES: # Septic Shock secondary to Necrotizing Cholecystitis with Liver Bed Abscess with Dent-Sensitive Escherechia Coli Bacteremia # Hypertension HOSPITAL COURSE: Mr. Kennedy Sewell is a pleasant 61 year old male with a past medical history significant for hypertension who was admitted to the [facility] on 05/10/2022 for abdominal pain. He was admitted to the Medicine service. Upon further evaluation, he was found to have septic shock secondary to necrotizing cholecystitis. General Surgery was consulted and he underwent laparoscopic cholecystectomy. He did well post- operatively, but was found to have dent-sensitive Escherechia Coli bacteremia. Infectious Diseases was consulted and he was evaluated by Dr. Cho. Dr. Cho recommended total of 14-days of levofloxacin and metronidazole. He was started on a diet and this was advanced as tolerated. He continued to improve over his hospitalization and Dr. Cardenas has cleared him for discharge with outpatient follow-up. On 05/14/2022, he was seen on morning rounds and deemed medically stable for discharge. Dr. Cardenas has provided prescriptions for levofloxacin, metronidazole, and pain medicine. He was given the opportunity to ask questions and reported no further questions. Furthermore, all questions were answered to the best of my ability. Today, I personally spent 20 minutes on his case, of which greater than 50% of the time was spent in patient education, counseling, and coordination of care as described above. - Physical Exam General: Alert, In no apparent distress, Oriented x3 HEENT: Atraumatic, PERRLA, Mucous membr. moist/pink, EOMI, Sclerae nonicteric Neck: Supple, JVD not distended Respiratory: Clear to auscultation bilaterally, Normal air movement Cardiovascular: No edema, Regular rate/rhythm, Normal S1 S2, No gallops, No rubs, No murmurs Gastrointestinal: Normal bowel sounds, Soft and benign, Non-distended, No rebound, No guarding, No tenderness Other (MARYBEL drain in place with small amount of serosanguinous output) Musculoskeletal: No clubbing Integumentary: No rashes Neurological: Normal gait, Normal speech, Cranial nerves 3-12 intact, Normal affect Vital Signs/Physical Exam: Temp Pulse Resp BP Pulse Ox 98.3 F 67 17 132/85 67 L 05/14/22 04:00 05/14/22 04:00 05/14/22 04:00 05/14/22 04:00 05/14/22 04:00 Laboratory Data at Discharge: WBC 9.50 K/uL (4.3-10.9) 05/14/22 03:41 Hgb 10.1 g/dL (13.6-17.9) L 05/14/22 03:41 Hct 28.7 % (39.6-49.0) L 05/14/22 03:41 Plt Count 198 K/uL (152-406) 05/14/22 03:41 PT 15.1 SECONDS (9.5-12.5) H 05/11/22 04:47 INR 1.36 05/11/22 04:47 APTT 26.1 SECONDS (24.3-36.9) 05/11/22 04:47 Sodium 137 mmol/L (136-145) 05/14/22 03:41 Potassium 3.5 mmol/L (3.5-5.1) 05/14/22 03:41 BUN 20 mg/dL (7-18) H 05/14/22 03:41 Creatinine 1.07 mg/dL (0.55-1.3) 05/14/22 03:41 Glucose 120 mg/dL (74-106) H 05/14/22 03:41 Phosphorus 2.6 mg/dL (2.5-4.9) D 05/14/22 03:41 Magnesium 1.7 mg/dL (1.8-2.4) L 05/14/22 03:41 Total Bilirubin Cancelled 05/13/22 06:00 AST Cancelled 05/13/22 06:00 ALT Cancelled 05/13/22 06:00 Alkaline Phosphatase Cancelled 05/13/22 06:00 Lipase 21 U/L (73-393) L 05/11/22 04:47 Home Medications: Losartan/Hydrochlorothiazide [Losartan-Hctz 100-25 mg Tab] 1 tab PO DAILY 05/10/22 RX: Metoprolol Tartrate 25 mg PO DAILY 05/10/22 Physician Discharge Instructions: May shower in a.m. Dry gauze or Band-Aid to wound daily Incentive spirometry as ordered Tylenol No. 3, Levaquin and Flagyl have been called into patient's pharmacy Diet: AHA Activity: No lifting more than 10 lbs Followup: Bony Cardenas MD [ACTIVE - CAN ADMIT] - 1 Week (Call to schedule appointment.) Time spent managing pt's care (in minutes): 20
[2022-05-14 08:54] VITALS: BP 151/75; TEMP 97.6; O2SAT 99
--- NOTE | 2022-05-14 11:49 | PN ---
Date of Progress Note: 05/14/2022 Subjective: The patient is awake, alert. No complaint. Objective: Vital Signs: Stable, afebrile. Abdomen: Benign. Laboratory Data: White count is 9.5. Assessment: Acute cholecystitis and cholelithiasis with septicemia, status post laparoscopic cholecy stectomy for necrotizing infection. Recommendations: The patient is clinically stable enough to be discharged home on Levaquin and Flagy l, Tylenol #3 for pain. Discharge instructions given. Follow up in my office in a week. Call for a ppointment. /MODL Voice ID: [id number] Report ID: [id number]
== END 2022-05-14 08:43 | disposition home or self-care (01) | DRG 853 ==
LOC: ER 09:40 → ERHOLD 14:34 → 3RD-ICU 20:07 → 4TH 05-11 20:48
PROVIDERS: ADMIT Hospitalist; ATTEND Internal Medicine
PROC: 0FT44ZZ Resection of Gallbladder, Percutaneous Endoscopic Approach (ICD-10-PCS; principal; 2022-05-10)
DX: A41.51 Sepsis due to Escherichia coli [E. coli] (principal); K75.0 Abscess of liver; R65.21 Severe sepsis with septic shock; K80.00 Calculus of gallbladder with acute cholecystitis without obstruction; N17.9 Acute kidney failure, unspecified; I10 Essential (primary) hypertension; F17.220 Nicotine dependence, chewing tobacco, uncomplicated; Z88.5 Allergy status to narcotic agent; Z79.899 Other long term (current) drug therapy; Z20.822 Contact with and (suspected) exposure to COVID-19
CPT/HCPCS: 36415; 74181; 76705; 80048; 80053; 81003; 83605; 83690; 83735; 84100; 85025; 85610; 85730; 87040; 87077; 87186; 87205; 87811; 88304; 94010; 96361; 96365; 96367; 96375; 99285; J0694; J0744; J1100; J1170; J1335; J1650; J1720; J2001; J2405; J2704; J3010; J3475; J7030; J7042; J7120; P9047

== ENCOUNTER 2024-06-28 11:48 | Emergency (ER) | payer OTHER ==
--- NOTE | 2024-06-28 13:52 | RAD REPORT ---
Exam:Hand Right 3 View HISTORY: Right hand pain FINDINGS: No fracture or dislocation seen No bony destructive lesion noted.
[2024-06-28 14:01] LABS: Absolute Eosinophils 0.1 K/uL (0-0.5); Absolute Lymphocytes (CBC) 1.5 K/uL (0.7-4.9); Absolute Monocytes 0.6 K/uL (0.1-1.3); Absolute Neutrophil 4.3 K/uL (1.8-8.0); Basophils % 0.7 % (0-1.3); Eosinophils % 1.4 % (0-4.4); Hematocrit 40.7 % (39.6-49.0); Hemoglobin 13.7 g/dL (13.6-17.9); Lymphocytes % 22.4 % (15.3-44.8); MCH 29.9 pg (27.0-35.0); MCHC 33.7 g/dL (32.0-36.0); MCV 88.6 fL (80-100); MPV 8.6 fL (7.6-11.3); Monocytes % 9.7 % (3.3-12.3); Neutrophils % 65.8 % (41.7-73.7); Platelets 187 thou/uL (152-406); RBC Red Blood Cell Count 4.59 M/uL (4.33-5.43); Red Cell Distribution Width 13.6 % (12.1-15.2)
[2024-06-28 14:16] LABS: Albumin 4.3 g/dL (3.4-5.0); Albumin/Globulin Ratio 1.2 (1.1-1.8); Anion Gap 7.8 mEq/L (5.0-15.0); Bilirubin Total 1.5 mg/dL (0.2-1.0); Globulin 3.5 g/dL (2.3-3.5); PTT, Activated Partial Thromb 31.6 SECONDS (24.3-36.9); Potassium 3.8 mEq/L (3.5-5.1); Protein, Total 7.8 g/dL (6.4-8.2); Protime INR 0.98
--- NOTE | 2024-06-28 14:28 | RAD REPORT ---
EXAMINATION: UPPER EXTREMITY VENOUS UNILATE CLINICAL INDICATION: Arm pain TECHNIQUE: Complete bilateral duplex sonography of the right upper extremity veins was performed. The examination included compression for vein patency, color Doppler imaging and flow augmentation in response to distal compression of the internal jugular,, subclavian, axillary, brachial, radial, ulna r, cephalic and basilic veins. .Grayscale, color and spectral analysis performed on all vessels COMPARISON: No prior exam. FINDINGS: The internal jugular, subclavian, axillary, brachial, basilic, cephalic, radial and ulnar veins are g enerally compressible and demonstrate augmentation. Color Doppler demonstrates good flow. IMPRESSION: No evidence of thrombus right arm
[2024-06-28] MEDS ORDERED: KETOROLAC 30 MG/ML INJ ONE (14:52)
[2024-06-28] MEDS ORDERED: CLINDAMYCIN 900MG/D5W 900 MG/50 ML IVPB IV ONE (14:52)
[2024-06-28] MEDS ORDERED: SMZ./TMP. 800/160 MG TABLET ONE (14:52)
--- NOTE | 2024-06-28 15:23 | EDPHYS ---
Physician Documentation [facility] Name: Kennedy Sewell Age: 63 yrs Sex: Male : 1960 Arrival Date: 06/28/2024 Time: 11:48 Bed 13 Private MD: ED Physician Luis Antonio Molina HPI: 06/28 12:33 This 63 yrs old Male presents to ER via Ambulatory with complaints of Arm Problem - cp Right. 12:33 The patient or guardian complains of swelling, redness of hand. cp 12:33 Patient is a 63-year-old male with past medical history significant for hypertension cp who presents to the emergency department with complaints of right hand swelling, redness that is streaking up his arm that he noticed this morning. Patient reports sustaining an injury while using his chainsaw back in March of this year when he was doing some yard work. He reports he nicked the tip of his right middle finger and has been managing the wound at home. Patient denies any other injuries. Denies fever. Patient reports when he awoke this morning there was a small swollen area at the tip of his right middle finger that he punctured and expressed some drainage after squeezing the area. Historical: - Allergies: 12:19 Codeine; iw - PMHx: 12:19 Hypertensive disorder; iw - PSHx: 12:19 Cholecystectomy; prostate; iw - Immunization history:: Adult Immunizations unknown. - Infectious Disease History:: Denies. - Social history:: Smoking status: unknown. ROS: 15:20 Constitutional: Negative for body aches, chills, fever, poor PO intake, cp 15:20 MS/extremity: Positive for erythema, swelling, tenderness, of the right hand, Negative for decreased range of motion, paresthesias, 15:20 Eyes: Negative for injury, pain, redness, and discharge, cp 15:20 Neck: Negative for pain with movement, pain at rest, stiffness, 15:20 Cardiovascular: Negative for chest pain, palpitations, 15:20 Respiratory: Negative for cough, shortness of breath, wheezing, 15:20 Abdomen/GI: Negative for abdominal pain, nausea, vomiting, and diarrhea, 15:20 Back: Negative for pain at rest, pain with movement, 15:20 Neuro: Negative for altered mental status, dizziness, headache, weakness, 15:20 All other systems are negative, Exam: 15:20 Constitutional: The patient appears in no acute distress, alert, awake, cp non-diaphoretic, non-toxic, well developed, well nourished, 15:20 Head/Face: Normocephalic, atraumatic. cp 15:20 Eyes: Periorbital structures: appear normal, Conjunctiva: normal, no exudate, no injection, Sclera: no appreciated abnormality, Lids and lashes: appear normal, bilaterally, 15:20 ENT: External ear(s): are unremarkable, Nose: is normal, Mouth: Lips: moist, Oral mucosa: moist, Posterior pharynx: Airway: no evidence of obstruction, patent, 15:20 Neck: ROM/movement: is normal, is supple, without pain, no range of motions limitations, 15:20 Chest/axilla: Inspection: normal, 15:20 Cardiovascular: Rate: normal, Rhythm: regular, Pulses: Pulses are 2+ in right radial artery and left radial artery. 15:20 Respiratory: the patient does not display signs of respiratory distress, Respirations: normal, no use of accessory muscles, no retractions, labored breathing, is not present, Breath sounds: are clear throughout, no decreased breath sounds, no stridor, no wheezing, 15:20 Abdomen/GI: Inspection: abdomen appears normal, Palpation: abdomen is soft and non-tender, in all quadrants, 15:20 Musculoskeletal/extremity: Extremities: noted in the right hand: small superficial wound noted tip of right middle finger, mild swelling noted that advances proximal to dorsum of hand with erythema that advances to right forearm, Vital Signs: 12:17 BP 162 / 89; Pulse 71; Resp 16; Temp 98.5; Pulse Ox 100% ; Weight 90.72 kg; Height 5 iw ft. 9 in. ; Pain 5/10; 15:41 BP 154 / 88; Pulse 67; Resp 18; Temp 97.5; Pulse Ox 98% on R/A; ph 12:17 Body Mass Index 29.53 (90.72 kg, 175.26 cm) iw 12:17 Pain Scale: Adult iw MDM: 12:25 Medical Screening Exam initiated cp 13:00 Differential diagnosis: foreign body, sepsis, cellulitis, abscess. cp 15:22 Data reviewed: vital signs, nurses notes, lab test result(s), radiologic studies, plain cp films, ultrasound, and as a result, I will discharge patient. 15:22 I considered the following discharge prescriptions or medication management in the emergency department Medications were administered in the Emergency Department. See MAR. Counseling: I had a detailed discussion with the patient and/or guardian regarding the historical points, exam findings, and any diagnostic results supporting the discharge/admit diagnosis, lab results, radiology results, the need for outpatient follow up, a family practitioner, to return to the emergency department if symptoms worsen or persist or if there are any questions or concerns that arise at home. Response to treatment: the patient's symptoms have mildly improved after treatment. 06/28 12:27 Order name: CBC with Diff; Complete Time: 14:41 06/28 14:42 Interpretation: Reviewed. 06/28 12:27 Order name: CMP; Complete Time: 14:41 06/28 14:42 Interpretation: Normal except: GFR 83; BILIT 1.5. 06/28 12:27 Order name: Lactate w/ 2H reflex if indic.; Complete Time: 14:41 06/28 12:27 Order name: Protime (+inr); Complete Time: 14:41 cp 06/28 12:27 Order name: Ptt, Activated; Complete Time: 14:41 06/28 12:27 Order name: XRAY Hand RIGHT 3 View; Complete Time: 14:41 06/28 14:42 Interpretation: Report reviewed. 06/28 12:46 Order name: UPPER EXTREMITY VENOUS UNILATE; Complete Time: 14:41 EDMS 06/28 12:27 Order name: Accucheck; Complete Time: 14:06 06/28 12:27 Order name: IV Saline Lock - Large Bore; Complete Time: 14:06 cp 06/28 12:27 Order name: Labs collected and sent; Complete Time: 14:06 06/28 12:27 Order name: O2 Per Protocol; Complete Time: 14:06 06/28 12:27 Order name: O2 Sat Monitoring; Complete Time: 14:06 06/28 12:27 Order name: Vital Signs; Complete Time: 14:06 cp Administered Medications: 14:50 Drug: Clindamycin IVPB 900 mg IVPB once over 30 mins; (mix in 50 mL) Route: IVPB; ph Infused Over: 30 mins; Site: left antecubital; 15:20 Follow up: Response: No adverse reaction; IV Status: Completed infusion; IV Intake: [id number] 15:20 Follow up: Response: No adverse reaction; IV Status: Completed infusion ph 15:00 Drug: Trimethoprim-Sulfamethoxazole PO (160 mg-800 mg (DS) 2 tabs PO once Route: PO; ph 15:40 Follow up: Response: No adverse reaction ph 15:00 Drug: Ketorolac IVP 15 mg IVP once Route: IVP; Site: left antecubital; ph 15:40 Follow up: Response: No adverse reaction ph Disposition: 17:55 I was immediately available on-site in the Emergency Department for consultation in the ms3 care of the patient. Disposition Summary: 06/28/24 15:22 Discharge Ordered Notes: Location: Home cp Problem: new cp Symptoms: have improved cp Condition: Stable cp Diagnosis - Cellulitis of right upper limb cp Followup: cp - With: Private Physician - When: 2 - 3 days - Reason: Recheck today's complaints Discharge Instructions: - Discharge Summary Sheet cp - Cellulitis, Adult cp Forms: - Medication Reconciliation Form cp - Antibiotic Education cp - Prescription Opioid Use cp - Patient Portal Instructions cp - Leadership Thank You Letter cp Prescriptions: - Anaprox DS 550 mg Oral Tablet - take 1 tablet ORAL route every 12 hours As needed; 20 tablet; Refills: 0, cp Product Selection Permitted - Clindamycin HCl 300 mg Oral Capsule - take 1 capsule ORAL route every 6 hours for 10 days; 40 capsule; Refills: 0, cp Product Selection Permitted - Bactrim DS 800-160 mg Oral Tablet - take 1 tablet ORAL route every 12 hours for 10 days; 20 tablet; Refills: 0, cp Product Selection Permitted Signatures: Dispatcher [employer] EDDoreen Lopez RN RN iw Virginie Rowley RN RN ph Td Crowe PA PA cp Luis Antonio Molina DO DO ms3 Wilbur Singh RN [id number] Corrections: (The following items were deleted from the chart) 12:19 12:19 Home Meds: prostate; [facility] 12:27 12:27 Hand Right 3 View+RAD.RAD.BRZ ordered. EDMS EDMS 12:28 12:28 Extremity Venous Uni Ltd+US.RAD.BRZ ordered. EDMS EDMS 12:28 12:28 BLOOD CULTURE*+BA.LAB.BRZ ordered. EDMS EDMS 12: 12:28 CBC+H.LAB.BRZ ordered. EDMS EDMS 12: 12:28 COMPREHENSIVE METABOLIC PANEL+C.LAB.BRZ ordered. EDMS EDMS 12: 12:28 LACTATE+C.LAB.BRZ ordered. EDMS EDMS 12: 12:28 PROTIME (+INR)+COAG.LAB.BRZ ordered. EDMS EDMS 12:28 PTT, ACTIVATED+COAG.LAB.BRZ ordered. EDMS EDMS : 12:28 Urinalysis+U.LAB.BRZ ordered. EDMS EDMS 15:36 12:27 Cardiac monitoring ordered. cp ph 15:36 12:27 EKG - Nurse/Tech ordered. cp ph
--- NOTE | 2024-06-28 15:23 | ER ---
Nurse's Notes [facility] Name: Kennedy Sewell Age: 63 yrs Sex: Male : 1960 Arrival Date: 06/28/2024 Time: 11:48 Bed 13 Private MD: Diagnosis: Cellulitis of right upper limb Presentation: 06/28 12:17 Chief complaint: Patient states: right middle finger is swollen and there is red streak iw going up his arm, cut his finger in March , cut it on a chain saw. Coronavirus screen: At this time, the client does not indicate any symptoms associated with coronavirus-19. Ebola Screen: No symptoms or risks identified at this time. Risk Assessment: Do you want to hurt yourself or someone else? Patient reports no desire to harm self or others. 12:17 Method Of Arrival: Ambulatory iw 12:17 Acuity: MARIA EUGENIA 3 iw 12:17 Initial Sepsis Screen: Does the patient meet any 2 criteria? No. Patient's initial iw sepsis screen is negative. Does the patient have a suspected source of infection? No. Patient's initial sepsis screen is negative. Onset of symptoms was June 26, 2024. Historical: - Allergies: 12:19 Codeine; iw - PMHx: 12:19 Hypertensive disorder; iw - PSHx: 12:19 Cholecystectomy; prostate; iw - Immunization history:: Adult Immunizations unknown. - Infectious Disease History:: Denies. - Social history:: Smoking status: unknown. Screenin:54 [facility] ED Fall Risk Assessment (Adult) History of falling in the last 3 months, ph including since admission No falls in past 3 months (0 pts) Confusion or Disorientation No (0 pts) Intoxicated or Sedated No (0 pts) Impaired Gait No (0 pts) Mobility Assist Device Used No (0 pt) Altered Elimination No (0 pt) Score/Fall Risk Level 0 - 2 = Low Risk Oriented to surroundings, Maintained a safe environment, Hourly rounding (assess needs \T\ fall precautionary measures) done. Abuse screen: Denies threats or abuse. Denies injuries from another. Nutritional screening: No deficits noted. Tuberculosis screening: No symptoms or risk factors identified. Assessment: 14:00 General: Appears in no apparent distress. comfortable, well groomed, Behavior is calm, ph cooperative, appropriate for age. Pain: Complains of pain in right hand. Neuro: Level of Consciousness is awake, alert, obeys commands, Oriented to person, place, time, situation. Cardiovascular: Capillary refill < 3 seconds in bilateral fingers Patient's skin is warm and dry. Respiratory: Airway is patent Respiratory effort is even, unlabored. Derm: Skin is pink, warm \T\ dry. Musculoskeletal: Circulation, motion, and sensation intact. Range of motion: intact in all extremities, Swelling present in right hand. Injury Description: Puncture sustained to palmar aspect of distal phalanx of right middle finger swelling noted to R hand, redness also noted that is streaking from R hand, up forearm to AC area. 15:41 Reassessment: Patient appears in no apparent distress at this time. Patient and/or jb4 family updated on plan of care and expected duration. Pain level reassessed. Patient is alert, oriented x 3, equal unlabored respirations, skin warm/dry/pink. Pt verbalized understanding of d/c and follow up instructions. Denies questions or concerns at this time. Vital Signs: 12:17 BP 162 / 89; Pulse 71; Resp 16; Temp 98.5; Pulse Ox 100% ; Weight 90.72 kg; Height 5 iw ft. 9 in. ; Pain 5/10; 15:41 BP 154 / 88; Pulse 67; Resp 18; Temp 97.5; Pulse Ox 98% on R/A; ph 12:17 Body Mass Index 29.53 (90.72 kg, 175.26 cm) iw 12:17 Pain Scale: Adult iw ED Course: 11:50 Patient arrived in ED. im 11:58 Td Crowe PA is PHCP. cp 11:58 Luis Antonio Molina DO is Attending Physician. cp 12:19 Triage completed. iw 12:19 Arm band placed on. iw 12:43 Radiology exam delayed due to PT NOT FOUND IN THE ER LOBB. az 13:04 UPPER EXTREMITY VENOUS UNILATE In Process Unspecified. EDMS 13:09 XRAY Hand RIGHT 3 View In Process Unspecified. EDMS 13:37 Virginie Rowley, RHODA is Primary Nurse. ph 13:52 Inserted saline lock: 20 gauge in left antecubital area, using aseptic technique. Blood iw collected. Flushed with 10 mL NS. 13:53 Initial lab(s) drawn, by me, sent to lab. First set of blood cultures drawn by me. iw 13:55 Patient has correct armband on for positive identification. Bed in low position. Call ph light in reach. Side rails up X 1. Pulse ox on. NIBP on. 15:41 Provided Education on: discharge instructions.. jb4 15:41 No provider procedures requiring assistance completed. IV discontinued, intact, jb4 bleeding controlled, No redness/swelling at site. Pressure dressing applied. Administered Medications: 14:50 Drug: Clindamycin IVPB 900 mg IVPB once over 30 mins; (mix in 50 mL) Route: IVPB; ph Infused Over: 30 mins; Site: left antecubital; 15:20 Follow up: Response: No adverse reaction; IV Status: Completed infusion; IV Intake: 25qesb7 15:20 Follow up: Response: No adverse reaction; IV Status: Completed infusion ph 15:00 Drug: Trimethoprim-Sulfamethoxazole PO (160 mg-800 mg (DS) 2 tabs PO once Route: PO; ph 15:40 Follow up: Response: No adverse reaction ph 15:00 Drug: Ketorolac IVP 15 mg IVP once Route: IVP; Site: left antecubital; ph 15:40 Follow up: Response: No adverse reaction ph Medication: 13:55 VIS not applicable for this client. ph Intake: 15:20 IV: 50ml; Total: 50ml. jb4 Outcome: 15:22 Discharge ordered by MD. cp 15:41 Discharged to home ambulatory, jb4 15:41 Condition: stable 15:41 Discharge instructions given to patient, Instructed on discharge instructions, follow up and referral plans. no drinking with medication, medication usage, Demonstrated understanding of instructions, follow-up care, medications, Prescriptions given X 3, 15:42 Patient left the ED. ph Signatures: Dispatcher [employer] EDMS Doreen Cr RN RN iw Virginie Rowley RN RN ph Td Crowe PA PA cp Bryson, James, RN RN jb4 Brittany Lara Itzel Corrections: (The following items were deleted from the chart) 12:19 12:19 Home Meds: prostate; iw iw 12:20 12:17 BP 162 / 89; Pulse 71bpm; Resp 16bpm; Pulse Ox 100%; Temp 98.5F; iw iw
[2024-06-28 16:14] VITALS: BP 154/88; TEMP 97.5; O2SAT 98
== END 2024-06-28 15:42 | disposition home or self-care (01) ==
LOC: ER 11:48
DX: L03.113 Cellulitis of right upper limb (principal)
CPT/HCPCS: 36415; 80053; 83605; 85025; 85610; 85730; 87040; 93971; 96365; 96375; 99284

== ENCOUNTER 2024-08-16 05:59 | Day surgery (SDC) | payer OTHER ==
[2024-08-05 09:57] LABS: Absolute Eosinophils 0.1 K/uL (0-0.5); Absolute Lymphocytes (CBC) 1.4 K/uL (0.7-4.9); Absolute Monocytes 0.7 K/uL (0.1-1.3); Absolute Neutrophil 3.2 K/uL (1.8-8.0); Basophils % 0.7 % (0-1.3); Eosinophils % 2.3 % (0-4.4); Hematocrit 40.2 % (39.6-49.0); Hemoglobin 13.5 g/dL (13.6-17.9); Lymphocytes % 25.3 % (15.3-44.8); MCH 29.5 pg (27.0-35.0); MCHC 33.6 g/dL (32.0-36.0); MCV 87.9 fL (80-100); MPV 8.4 fL (7.6-11.3); Monocytes % 12.4 % (3.3-12.3); Neutrophils % 59.3 % (41.7-73.7); Nucleated Red Blood Cells % 0.4 % (0-0); Platelets 215 thou/uL (152-406); RBC Red Blood Cell Count 4.58 M/uL (4.33-5.43); Red Cell Distribution Width 13.7 % (12.1-15.2)
[2024-08-05 10:04] LABS: PT Prothrombin Time 10.5 SECONDS (9.4-12.5); PTT, Activated Partial Thromb 28.3 SECONDS (24.3-36.9); Protime INR 0.94
[2024-08-05 10:22] LABS: Anion Gap 8.4 mEq/L (5.0-15.0); Potassium 3.4 mEq/L (3.5-5.1)
--- NOTE | 2024-08-05 10:22 | RAD REPORT ---
Procedure: Chest Pa And Lat (2 Views) HISTORY: Preop for knee surgery. Hypertension. COMPARISON: October 2023 FINDINGS: The lungs appear clear of acute infiltrate. No significant pleural effusion noted. The heart is normal size. IMPRESSION: No acute abnormality is displayed.
--- NOTE | 2024-08-13 16:22 | EKG ---
Test Date: 2024-08-05 Test Time: 10:37:44 [employer] Worker: ASHLEY MEASUREMENT RESULTS: Intervals: Rate: 68 [place]: 176 QRSD: 108 QT: 402 QTc: 427 [place]: P: 59 [place]: 176 QRS: 74 T: 55 INTERPRETIVE STATEMENTS: Normal sinus rhythm Normal ECG Compared to ECG 10/06/2023 10:36:42 No significant changes Electronically Signed On 08-13-24 16:09:07 [employer] by Colton Pena
[2024-08-16] MEDS: CELECOXIB 100 MG CAPSULE ONE ×2 (06:17→06:57)
[2024-08-16] MEDS: Ringers Lactate 1,000 ML IV ONE (06:30)
[2024-08-16] MEDS: LIDOCAINE 1% MPF 5 ML VIAL ONE (06:34)
[2024-08-16] MEDS: FENTANYL CITR 100 MCG/2 ML ONE (06:35)
[2024-08-16] MEDS: EPINEPHRINE 1 MG/ML VIAL ONE (06:35)
[2024-08-16] MEDS: dexAMETHasone 4 MG/ML VIAL ONE (06:35)
[2024-08-16] MEDS: MIDAZOLAM HCL 2 MG/2 ML INJ ONE (06:35)
[2024-08-16] MEDS: BUPIVACAINE 0.25% PF 30 ML VIAL ONE (06:36)
[2024-08-16] MEDS: Oxycodone HCl/Acetaminophen 5/325 MG TAB ONE (06:45)
[2024-08-16] MEDS: ACETAMINOPHEN 500 MG TAB ONE (06:45)
[2024-08-16] MEDS: GABAPENTIN 100 MG CAP ONE (06:46)
[2024-08-16] MEDS: DEXMEDETOMIDINE HCL 200 MCG/2 ML VIAL ONE (06:50)
[2024-08-16] MEDS: MAGNESIUM SULFATE 1 gm IVPB 1 GM/100 ML BAG IV ONE (06:50)
[2024-08-16] MEDS ORDERED: ONDANSETRON 4 MG/2 ML VIAL ONE (07:18)
[2024-08-16] MEDS ORDERED: propofoL 200 MG/20 ML VIAL IV ONE ×2 (07:18→07:44)
[2024-08-16] MEDS ORDERED: LIDOCAINE 2% MPF 5 ML VIAL ONE ×2 (07:18→07:19)
[2024-08-16] MEDS ORDERED: KETAMINE HCL IN 0.9 % NACL 50 MG/5 ML SYRINGE IV ONE (07:19)
[2024-08-16] MEDS: TRANEXAMIC ACID 1,000 MG/10 ML VIAL IV ONE (07:23)
[2024-08-16] MEDS: SUCCINYLCHOLINE 20 MG/ML (10 ML) IV ONE (07:25)
[2024-08-16] MEDS ORDERED: dexAMETHasone 10 MG/ML VIAL ONE (07:45)
[2024-08-16] MEDS ORDERED: GLYCOPYRROLATE 0.2 MG/ML SYR ONE (07:48)
[2024-08-16] MEDS ORDERED: EPHEDRINE SULF 50 MG/ML VIAL ONE (07:49)
[2024-08-16] MEDS: CEFAZOLIN SODIUM 2 GM/VIAL ONE (07:58)
[2024-08-16] MEDS ORDERED: FENTANYL CITR 100 MCG/2 ML ONE (08:17)
[2024-08-16] MEDS ORDERED: ONDANSETRON 4 MG/2 ML VIAL IV PRN (10:18)
[2024-08-16] MEDS ORDERED: ACETAMINOPHEN 325 MG TABLET PO PRN (10:18)
[2024-08-16] MEDS ORDERED: DOCUSATE NA 100 MG CAP PO PRN (10:18)
--- NOTE | 2024-08-16 10:18 | P.OP ---
Preoperative diagnosis: Right knee osteoarthritis Postoperative diagnosis: Same Primary procedure: Right total knee arthroplasty Anesthesia: General Estimated blood loss: 40 cc Specimen: Right knee bone remnants Findings: See dictation Operative Technique: Indication For Procedure: Kennedy is a 63 year-old male presenting to my clinic with signs, symptoms and x-ray findings consistent with severe right knee osteoarthritis. I discussed with the patient at length risks and benefits associated with operative and nonoperative treatment. He had failed conservative treatment measures and had significant difficulties with ADLs secondary to his pain. We discussed operative treatment and elected to proceed with right total knee arthroplasty. He expressed understanding and elected to proceed with operative treatment. Description Of Procedure: After informed consent was obtained, the patient was identified in the preoperative holding area. The right lower extremity was marked. The patient was then taken to the PACU where he underwent a right lower extremity adductor canal block performed by Anesthesia. He was then taken to the operating room, transferred to the operating table in supine fashion, and placed under general anesthesia. The right lower extremity was then prepped and draped in usual sterile fashion. A time-out was initiated. The correct patient and procedure were confirmed and identified. The patient did receive his preoperative prophylactic antibiotics. The right lower extremity was then exsanguinated and tourniquet was inflated to 300 mmHg. Approximately 15 cm longitudinal incision was made centered over the anterior aspect of the right knee. Dissection was then taken to the extensor mechanism and a medial parapatellar arthrotomy was performed. The patella was everted and dislocated laterally and the knee was flexed in the fat pad. Medial and lateral meniscus and ACL were all excised exposing the distal femur. Excess hypertrophic s ynovium was also excised within the suprapatellar pouch. The patient had an MRI of his right knee preoperatively for surgical planning and creation of cutting blocks. The cutting block was then placed over the distal femur and pins were then placed. The distal femoral cutting block was then placed over the pins. An dejuan wing was then used to ensure proper depth cut and the distal femur was then cut. The chamfer cutting guide was then placed over the distal end of the femur. Anterior, posterior cuts as well as anterior and posterior chamfer cuts were then made again confirming proper depth of the cut using an Dejuan wing. Excess bone remnants were then sent to pathology for further evaluation. Next, attention was taken to the proximal tibia. A tibial jig and tibial cutting block was then placed on proximal aspect of the right tibia and locked into position. Pins were then placed and alignment guide was then used to confirm proper alignment of the cut and then coronal and sagittal planes. Once this was confirmed, the cutting jig was placed over the pins and the proximal tibia was cut. Sizing trays were then selected and size 10 mm spacer was used and there was good overall balance in flexion and extension. Next, the trial implants were then placed using the size 10 standard CR femur and a size G tibia and an 10 mm CR poly. There was overall good range of motion and good stability. The trial implants were then removed. The wound was then irrigated thoroughly with normal saline and the knee was then injected with 20 cc of 0.5% Marcaine both in the posterior capsule and medial and lateral gutters as well as quadriceps tendon and periosteum. The tibia was then punched. The femur was drilled. The cement was then prepared on the back table. Cement was then placed first on the tibial surface followed by size G tibia. Excess cement was removed with [place] elevators. Size 10 standard CR femur was then placed on the distal femur after cement was placed on the distal femur. Excess cement was then removed and a size 10 mm CR trial poly was then placed. The knee was held in extension as the cement hardened. Undersurface of the patella was prepared debriding osteophytes using rongeurs as well as osteophytes.. Cement was placed on the undersurface of the patella after it was cut and a size 35 patella was placed. Once the cement was hardened, the knee was ranged, there was good overall stability both in flexion, extension and as well as stability with varus and valgus stresses. Trial poly was then removed and a size 10 mm CR poly was then placed and locked into position. The knee was then ranged again. There was good overall range of motion both for flexion and extension with good stability. The wound was then irrigated again thoroughly with normal saline using pulse lavage. Tourniquet was let down. Hemostasis was achieved using Bovie electrocautery. Extensor mechanism was then approximated using a #1 Vicryl both in interrupted and running fashion. The fascia was then approximated using 0 Vicryl. Subcutaneous tissue was approximated with a 2-0 Vicryl. Skin was approximated using norma. Sterile dressings were applied. The patient was awakened and transferred back in stable condition. Complications: None Implants: Biomet Shraddha persona 10 CR femur, G tibia, 10 CR poly, 35 patella Fluids & blood products: Per anesthesia record Transferred to: Recovery Room Condition: Good
[2024-08-16 10:51] LABS: Hematocrit 35.7 % (39.6-49.0); Hemoglobin 12.3 g/dL (13.6-17.9)
--- NOTE | 2024-08-16 10:59 | RAD REPORT ---
EXAM: Knee Right 2 View INDICATION: Post Op COMPARISON: None FINDINGS: No acute fracture. Postoperative changes from right knee arthroplasty. Alignment is normal. Gas and fluid within the joint which is not unexpected. No significant focal degenerative changes. Other: n/a IMPRESSION: Immediate postoperative changes from right knee arthroplasty. No hardware complications o r fractures.
[2024-08-16 11:34] VITALS: O2SAT 99
[2024-08-16 12:06] VITALS: BMI 31.1
[2024-08-16] MEDS: FLU (Fluarix Triv) TS24-25(6MOS UP)/PF 45 MCG/0.5 ML Syringe IM ONE (16:00)
[2024-08-16] MEDS: CEFAZOLIN SODIUM 2 GM in NA CHLORIDE 0.9% 100 ML IVPB SCH (17:40)
[2024-08-16] MEDS: HYDROCODONE/APAP 7.5/325 MG TAB PO PRN (21:31)
[2024-08-17] MEDS: TRAMADOL HCL 50 MG TAB PO PRN (00:54)
[2024-08-17] MEDS: ENOXAPARIN 30 MG/0.3 ML SQ SCH (05:26)
[2024-08-17 06:31] LABS: Hematocrit 32.1 % (39.6-49.0)
[2024-08-17] MEDS: TADALAFIL 5 MG PO SCH (09:00)
[2024-08-17] MEDS: hydroCHLOROthiazide 25 MG TAB PO SCH (09:00)
[2024-08-17 09:05] VITALS: BP 129/63; TEMP 97.9
[2024-08-17] MEDS: CELECOXIB 100 MG CAPSULE PO SCH (09:09)
--- NOTE | 2024-08-17 10:04 | P.DS ---
Discharge Date: 08/17/24 Disposition: [facility] HOME/HOME HEALTH CARE Discharge Condition: GOOD Reason for Admission: Right total knee arthroplasty Consultations: None Procedures: Right total knee arthroplasty on August 16, 2024 Brief History of Present Illness: Kennedy is a 63-year-old male who underwent right total knee arthroplasty on August 16, 2024 admitted to the floor postoperatively for pain control and physical therapy. Hospital Course: Patient was admitted to the floor postoperatively in stable condition. Physical therapy was consulted to aid with mobilization. Patient ambulated well on the day of surgery as well as the day of discharge. Patient's vital signs remained stable while in the hospital. He was given a dose of Lovenox for DVT prophylaxis on August 17. He was discharged with pain medication and Xarelto for DVT prophylaxis on an outpatient basis. He will follow-up with Dr. Randall in 2 weeks for staple removal. Vital Signs/Physical Exam: Temp Pulse Resp BP Pulse Ox 97.9 F 75 16 129/63 97 08/17/24 08:00 08/17/24 09:00 08/17/24 08:00 08/17/24 09:00 08/17/24 08:00 Laboratory Data at Discharge: WBC 5.30 thou/uL (4.3-10.9) 08/05/24 09:30 Hgb 11.0 g/dL (13.6-17.9) L D 08/17/24 06:04 Hct 32.1 % (39.6-49.0) L 08/17/24 06:04 Plt Count 215 thou/uL (152-406) 08/05/24 09:30 PT 10.5 SECONDS (9.4-12.5) 08/05/24 09:30 INR 0.94 08/05/24 09:30 APTT 28.3 SECONDS (24.3-36.9) 08/05/24 09:30 Sodium 135 mEq/L (136-145) L 08/05/24 09:30 Potassium 3.4 mEq/L (3.5-5.1) L 08/05/24 09:30 BUN 17 mg/dL (7-18) 08/05/24 09:30 Creatinine 1.06 mg/dL (0.70-1.30) 08/05/24 09:30 Glucose 117 mg/dL (74-106) H 08/05/24 09:30 Home Medications: Atorvastatin Calcium [Lipitor] 80 mg PO DAILY 08/05/24 hydroCHLOROthiazide [Hydrochlorothiazide] 25 mg PO DAILY 08/05/24 tadalafiL [Tadalafil] 5 mg PO DAILY 08/05/24 Hydrocodone 7.5/APAP 325 [[place] 7.5/325 mg*] 1 tab PO Q4H PRN tab 08/17/24 Physician Discharge Instructions: Keep dressing clean, dry and intact. Use bilateral thigh-high IAM hose for 2 weeks to aid with swelling. Begin Xarelto tomorrow, August 18, 2020 4 in the morning and take once daily until prescription is completed. Follow-up with Dr. Randall in 2 weeks for staple removal. Diet: Regular Activity: Weight bearing as tolerated Followup: Davie Soliz MD [Primary Care Provider] - Raymon Randall MD [ACTIVE - CAN ADMIT] - 1-2 Weeks
[2024-08-17] MEDS ORDERED: ATORVASTATIN 80 MG TAB PO SCH (21:00)
== END 2024-08-17 10:35 | disposition home health service (06) ==
LOC: OR 05:59 → 2ND 10:18 → OR 08-17 10:35
PROVIDERS: ATTEND Orthopaedic Surgery Sports Medicine
PROC: 0SRC0J9 Replacement of Right Knee Joint with Synthetic Substitute, Cemented, Open Approach (ICD-10-PCS; principal; 2024-08-16 07:30)
DX: M17.11 Unilateral primary osteoarthritis, right knee (principal)
CPT/HCPCS: 93005; 85025; 80048; 36415 ×2; 85610; 88305; 85730; 85018; 85014; 71046; 73560; 97110; 97116; 97139; 97161; 97530; 94010; 27447; J3475; J2704 ×2; J1100 ×2; J2003 ×3; J2250; J3010 ×2; J0171; J2405; J7120; 88311; J1650